=== PATIENT | female | born 1930 | race Caucasian/White ===

== ENCOUNTER 2017-02-20 17:12 | Inpatient (IN) | payer OTHER ==
[~2017-02-20] VITALS: Ht 162.6 cm; Wt 60.9 kg
[~2017-02-20 17:12] MED LIST: ASPI325T4 PO; CELE100C PO; CITA10TA8 PO; COEN75CA PO; CRS/10 PO; CYAN10004 PO; FURO20TA PO; LEVO75TA36 PO; LOSA1TAB PO; MCLIN; MECL25TA2 PO; METO1TAB66 PO; NTRGSL/4 SL; POTA-335 PO; vitamin c PO
[2017-02-20] MEDS ORDERED: METHYLPREDNISOLONE 125 MG VIAL IV STA (17:43)
[2017-02-20] MEDS ORDERED: SODIUM CHLORIDE 0.9% 1000ML 1,000 ML IV STA (17:52)
[2017-02-20] MEDS ORDERED: DEXTROSE 50% 50 ML SYR IV PRN (18:00)
[2017-02-20] MEDS ORDERED: GLUCAGON FOR INJ 1 MG VIAL SQ PRN (18:00)
[2017-02-20] MEDS ORDERED: GLUCOSE 40% GEL 15 GM TUBE PO PRN (18:00)
[2017-02-20] MEDS ORDERED: GLUCOSE 10 TABS/TUBE PO PRN (18:00)
[2017-02-20] MEDS ORDERED: ONDANSETRON INJ 2 MG/ML 2 ML VIAL IV PRN (18:00)
[2017-02-20] MEDS ORDERED: GABA-112 PO (18:02)
[2017-02-20] MEDS ORDERED: INSDGIPEN SC (18:02)
[2017-02-20] MEDS ORDERED: ISOS60TA25 PO (18:02)
[2017-02-20] MEDS ORDERED: GLC/500 PO (18:02)
--- NOTE | 2017-02-20 18:06 | DIAGNOSTIC IMAGING REPORT ---
HEAD WITHOUT CONTRAST (CT) CLINICAL HISTORY: 86 years-old Female presenting with EVALUATE ALTERED MENTAL STATUS/WEAKNESS. TECHNIQUE: Multidetector CT imaging of the head was performed without the use of intravenous contrast. IV contrast: None. A dose lowering technique was used consistent with the principles of ALARA (as low as reasonably achievable). COMPARISON: 08/18/2012. CT DOSE (mGy.cm): The estimated cumulative dose is 537.48 mGy.cm. 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 Ventricular size proportional to sulci and mild diffuse parenchymal volume loss, likely age-related. Periventricular white matter hypoattenuation as on prior exam, likely chronic small vessel ischemic change. Round hypodensities in the bilateral basal ganglia, most likely old lacunar infarcts or less likely dilated perivascular spaces. No mass effect or midline shift. No hemorrhage or acute territorial infarct. No extra-axial fluid collection. Paranasal sinuses and mastoid air cells clear. Calvarium intact. IMPRESSION: 1. No acute intracranial pathology. 2. Bilateral basal ganglia lacunar infarcts. 3. Chronic small vessel ischemic change stable from prior. Electronically signed by: Blake Burciaga M.D. 02/20/2017 6:05 PM Dictated Date/Time: 02/20/2017 6:01 PM
[2017-02-20 18:11] LABS: BASO % 0.5 %; BASO ABS # 0.03 K/uL (0-0.2); COMPLETE YES; EOS % 1.5 %; HEMATOCRIT 39.4 % (37-47); IG% 0.2 %; LYMPH % 17.3 %; LYMPH ABS # 1.01 K/uL (1.2-3.4); MEAN CELL VOLUME 90.2 fL (80-100); MEAN CORPUSCULAR HEMOGLOBIN 30.7 pg (25-34); MEAN PLATELET VOLUME 10.4 fL (7.4-10.4); MONO % 7.7 %; NEUT % 72.8 %; PLATELET COUNT 178 K/uL (130-400); RED BLOOD COUNT 4.37 M/uL (4.2-5.4); WHITE BLOOD COUNT 5.84 K/uL (4.8-10.8)
[2017-02-20] MEDS ORDERED: CHOL1000 PO (18:15)
[2017-02-20] MEDS ORDERED: MULT-190 PO (18:15)
[2017-02-20 18:16] LABS: ALT/SGPT 95 U/L (12-78); AST/SGOT 65 U/L (15-37); BLOOD UREA NITROGEN 14 mg/dl (7-18); BUN/CREATININE RATIO 16.3 (10-20); C-REACTIVE PROTEIN 5.43 mg/dl (0-0.29); CALCIUM 9.4 mg/dl (8.5-10.1); CARBON DIOXIDE 27 mmol/L (21-32); CHLORIDE 104 mmol/L (98-107); CREATININE 0.84 mg/dl (0.60-1.20); GLUCOSE 155 mg/dl (70-99); MAGNESIUM 1.9 mg/dl (1.8-2.4); PARTIAL THROMBOPLASTIN RATIO 1.2; POTASSIUM 3.6 mmol/L (3.5-5.1); SODIUM 138 mmol/L (136-145)
[2017-02-20 18:24] LABS: ALKALINE PHOSPHATASE 303 U/L (45-117)
[2017-02-20] MEDS ORDERED: CRS5 PO (18:55)
[2017-02-20] MEDS ORDERED: METO1TAB66 PO (18:55)
--- NOTE | 2017-02-20 18:57 | DIAGNOSTIC IMAGING REPORT ---
SINGLE VIEW CHEST CLINICAL HISTORY: Generalized weakness. Change in mental status. FINDINGS: An AP, portable, upright chest radiograph is compared to study dated 08/19/2012. The examination is degraded by portable technique, apical lordotic positioning, and patient rotation. The heart is mildly enlarged and there is atherosclerotic calcification of the thoracic aorta. The pulmonary vasculature is noncongested. There is chronic elevation of the right hemidiaphragm. The lungs and pleural spaces are otherwise clear. No pneumothorax is seen. The skeletal structures are osteopenic. The bony thorax is grossly intact. IMPRESSION: Cardiomegaly with no acute cardiopulmonary abnormality. Electronically signed by: Akshat Aj M.D. 02/20/2017 6:55 PM Dictated Date/Time: 02/20/2017 6:54 PM
[2017-02-20] MEDS ORDERED: NITROGLYCERIN 0.4 MG SL PER TAB CHARGE SL PRN (19:00)
--- NOTE | 2017-02-20 19:01 | EMERGENCY ROOM VISIT NOTE ---
History Report prepared by Trisha: Rod Duncan Under the Supervision of: Dr. Gregorio Clarke D.O. First contact with patient: 17:18 Chief Complaint: ABNORMAL LABS Stated Complaint: JAW PAIN, ABNORMAL LABS, PHYSICIAN REFERRED History of Present Illness The patient is a 86 year old female who presents to the Emergency Room with complaints of intermittent left sided jaw pain beginning 3 weeks ago. The patient states that her pain began in her left forehead before moving to her jaw. She describes her pain as "shooting". She was referred to the ED with concerns of temporal arteritis after being seen by her mechanical expert. The patient states that her left eye looks "foggy". She has a recent diagnosis of diabetes and a history of cardiac problems. She denies any rashes. The patient is on aspirin, but denies taking any other blood thinning medication. Source of History: patient Onset: Three weeks ago Position: jaw (left) Quality: other ("shooting") Timing: intermittent Associated Symptoms: No rash Note: The patient also complains of her left eye appearing "foggy". Review of Systems See HPI for pertinent positives & negatives. A total of 10 systems reviewed and were otherwise negative. 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 Social History Smoking Status: Never Smoker Alcohol Use: none Marital Status: Occupation Status: retired Current/Historical Medications Scheduled Aspirin (Aspirin), 325 MG PO QPM Gabapentin (Neurontin), 100 MG PO HS Insulin Glargine (Lantus Solostar), 6 UNITS SC HS Isosorbide Mononitrate Ext Rel (Imdur Ext Rel), 120 MG PO QPM Metformin Hcl (Glucophage), 1,000 MG PO BIDM Metoprolol Succinate (Toprol Xl), 50 MG PO QPM Ocuvite Preservision (Ocuvite Preservision), 2 TAB PO QPM Rosuvastatin Calcium (Crestor), 5 MG PO QPM Scheduled PRN Nitroglycerin (Nitrostat), 0.4 MG SL UD PRN Allergies Coded Allergies: Latex (Verified Allergy, rash/breakdown, 08/18/12) pt Niacin (Verified Allergy, rash, 08/18/12) pt Physical Exam Vital Signs Date Time Temp Pulse Resp B/P (MAP) Pulse Ox O2 Delivery O2 Flow Rate FiO2 02/20/17 17:40 75 131/60 99 Room Air 86 99/59 93 97/65 02/20/17 17:34 99 Room Air 02/20/17 17:15 36.8 88 16 133/76 97 Room Air Physical Exam GENERAL: Patient is awake, alert, and in no acute distress. Patient is resting comfortably and showing no signs of anxiety EYES: The conjunctivae are clear. The pupils are round and reactive. EARS, NOSE, MOUTH AND THROAT: The nose is without any evidence of any deformity. Mucous membranes are moist tongue is midline. Tenderness to palpation of the left temporal artery and left TMJ. NECK: The neck is nontender and supple. RESPIRATORY: Normal respiratory effort is noted there is no evidence of wheezing rhonchi or rales CARDIOVASCULAR: Regular rate and rhythm noted there no murmurs rubs or gallops normal S1 normal S2 GASTROINTESTINAL: The abdomen is soft. Bowel sounds are present in all quadrants. Abdomen is nontender MUSCULOSKELETAL/EXTREMITIES: There is no evidence of gross deformity full range of motion is noted in the hips and shoulders SKIN: There is no obvious evidence of any rash. There are no petechiae, pallor or cyanosis noted. NEUROLOGIC: Patient is awake alert and oriented x3, gait steady, patellar tendon reflexes 2+ bilaterally. 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 Ventricular size proportional to sulci and mild diffuse parenchymal volume loss, likely age-related. Periventricular white matter hypoattenuation as on prior exam, likely chronic small vessel ischemic change. Round hypodensities in the bilateral basal ganglia, most likely old lacunar infarcts or less likely dilated perivascular spaces. No mass effect or midline shift. No hemorrhage or acute territorial infarct. No extra-axial fluid collection. Paranasal sinuses and mastoid air cells clear. Calvarium intact. IMPRESSION: 1. No acute intracranial pathology. 2. Bilateral basal ganglia lacunar infarcts. 3. Chronic small vessel ischemic change stable from prior. Electronically signed by: Blake Burciaga M.D. SINGLE VIEW CHEST FINDINGS: An AP, portable, upright chest radiograph is compared to study dated 08/19/2012. The examination is degraded by portable technique, apical lordotic positioning, and patient rotation. The heart is mildly enlarged and there is atherosclerotic calcification of the thoracic aorta. The pulmonary vasculature is noncongested. There is chronic elevation of the right hemidiaphragm. The lungs and pleural spaces are otherwise clear. No pneumothorax is seen. The skeletal structures are osteopenic. The bony thorax is grossly intact. IMPRESSION: Cardiomegaly with no acute cardiopulmonary abnormality. Electronically signed by: Akshat Aj M.D. Laboratory Results 02/20/17 17:49 Red Blood Count 4.37, Mean Corpuscular Volume 90.2, Mean Corpuscular Hemoglobin 30.7, Mean Corpuscular Hemoglobin Concent 34.0, Mean Platelet Volume 10.4, Neutrophils (%) (Auto) 72.8, Lymphocytes (%) (Auto) 17.3, Monocytes (%) (Auto) 7.7, Eosinophils (%) (Auto) 1.5, Basophils (%) (Auto) 0.5, Neutrophils # (Auto) 4.25, Lymphocytes # (Auto) 1.01, Monocytes # (Auto) 0.45, Eosinophils # (Auto) 0.09, Basophils # (Auto) 0.03 02/20/17 17:49 Test 02/20/17 17:49 White Blood Count 5.84 K/uL (4.8-10.8) Red Blood Count 4.37 M/uL (4.2-5.4) Hemoglobin 13.4 g/dL (12.0-16.0) Hematocrit 39.4 % (37-47) Mean Corpuscular Volume 90.2 fL (80-100) Mean Corpuscular Hemoglobin 30.7 pg (25-34) Mean Corpuscular Hemoglobin Concent 34.0 g/dl (32-36) Platelet Count 178 K/uL (130-400) Mean Platelet Volume 10.4 fL (7.4-10.4) Neutrophils (%) (Auto) 72.8 % Lymphocytes (%) (Auto) 17.3 % Monocytes (%) (Auto) 7.7 % Eosinophils (%) (Auto) 1.5 % Basophils (%) (Auto) 0.5 % Neutrophils # (Auto) 4.25 K/uL (1.4-6.5) Lymphocytes # (Auto) 1.01 K/uL (1.2-3.4) Monocytes # (Auto) 0.45 K/uL (0.11-0.59) Eosinophils # (Auto) 0.09 K/uL (0-0.5) Basophils # (Auto) 0.03 K/uL (0-0.2) RDW Standard Deviation 41.2 fL (36.4-46.3) RDW Coefficient of Variation 12.5 % (11.5-14.5) Immature Granulocyte % (Auto) 0.2 % Immature Granulocyte # (Auto) 0.01 K/uL (0.00-0.02) Erythrocyte Sedimentation Rate 65 mm/hr (0-21) Prothrombin Time 11.0 SECONDS (9.0-12.0) Prothromb Time International Ratio 1.0 (0.9-1.1) Activated Partial Thromboplast Time 31.0 SECONDS (21.0-31.0) Partial Thromboplastin Ratio 1.2 Anion Gap 7.0 mmol/L (3-11) Est Creatinine Clear Calc Drug Dose 43.1 ml/min Estimated GFR () 74.0 Estimated GFR (Non- 63.8 BUN/Creatinine Ratio 16.3 (10-20) Calcium Level 9.4 mg/dl (8.5-10.1) Magnesium Level 1.9 mg/dl (1.8-2.4) Total Bilirubin 0.9 mg/dl (0.2-1) Direct Bilirubin 0.4 mg/dl (0-0.2) Aspartate Amino Transf (AST/SGOT) 65 U/L (15-37) Alanine Aminotransferase (ALT/SGPT) 95 U/L (12-78) Alkaline Phosphatase 303 U/L (45-117) Total Creatine Kinase 40 U/L (26-192) Creatine Kinase MB 1.2 ng/ml (0.5-3.6) Creatine Kinase MB Ratio 3.0 (0-3.0) Troponin I < 0.015 ng/ml (0-0.045) C-Reactive Protein 5.43 mg/dl (0-0.29) Pro-B-Type Natriuretic Peptide 898 pg/ml (0-1800) Total Protein 7.9 gm/dl (6.4-8.2) Albumin 3.1 gm/dl (3.4-5.0) Thyroid Stimulating Hormone (TSH) 1.850 uIu/ml (0.300-4.500) Laboratory results per my review. Medications Administered Medications (Trade) Dose Ordered Sig/Duncan Route Start Time Stop Time Status Last Admin Dose Admin Methylprednisolone Sodium Succinate (Solu-Medrol IV) 60 mg NOW STAT IV 02/20/17 17:43 02/20/17 17:44 DC 02/20/17 18:05 60 MG ECG Indication: other (headache) Rate (beats per minute): 77 Rhythm: normal sinus Findings: no acute ischemic change, no ectopy Comparison ECG Date: Aug 20, 2012 Change: no significant change ED Course 1721: The patient was evaluated in room C6. A complete history and physical examination were performed. 1743: Ordered Solu-Medrol 60 mg IV, NSS 1000 mL @ 999 mL/hr IV. 1745: Upon reevaluation, the patient is resting comfortably. I discussed results and treatment plan with her. She verbalizes agreement and understanding. I spoke with Dr. Ryan of the [facility]. The patient will be evaluated for further management and care. Medical Decision Differential diagnosis: Etiologies such as migraine headache, meningitis, sinusitis, CO exposure, ICH, SAH, infection, tumor, headache, sinus thrombosis, arterial dissection, as well as others were entertained. Nursing notes reviewed. Patient's previous electronic medical records reviewed. The patient is an 86-year-old female who is been experiencing left temporal pain and left jaw pain. The last few weeks. The patient appears to have had a workup previously and was sent to the emergency department for the possibility of temporal arteritis. She has been complaining of some left eye complaints like blurry vision. She had no other focal neurologic deficit. I discussed the patient's laboratory and radiographic studies with her. She was treated with steroids in the emergency department. I also discussed his case with the on- call [facility] hospitalist. They've agreed to evaluate the patient in the emergency department for further management and disposition. Medication Reconcilliation Current Medication List: was personally reviewed by me Blood Pressure Screening Patient's blood pressure: Elevated blood pressure Blood pressure disposition: Elevated BP felt to be situational Consults Time Called: 1739 Consulting Physician: Dr. Connor Wilson Returned Call: [phone] I discussed the patient's case with Dr. Ryan. The patient will be evaluated for further management. Impression Primary Impression: Left-sided headache Additional Impression: Temporal arteritis Scribe Attestation The scribe's documentation has been prepared under my direction and personally reviewed by me in its entirety. I confirm that the note above accurately reflects all work, treatment, procedures, and medical decision making performed by me. Departure Information Dispostion Being Evaluated By Hospitalist Prescriptions Metoprolol Succinate (TOPROL XL) 50 Mg Tab 50 MG PO QPM for 30 Days, 3 Refills Prov: Francheska Moura PA-C 02/20/17 Referrals Epifanio Mendoza D.O. (PCP) Patient Instructions My [facility] Problem Qualifiers
[2017-02-20] MEDS ORDERED: IV FLUIDS COMPLETED PRN (19:30)
[2017-02-20 19:45] VITALS: BP 147/83; PULSE 80; TEMP 36.9; O2SAT 99
[2017-02-20] MEDS: SODIUM CHLORIDE 0.9% 1000ML 1,000 ML IV SCH (20:00)
[2017-02-20] MEDS: ACETAMINOPHEN 325 MG TAB PO PRN (20:17)
--- NOTE | 2017-02-20 20:23 | History and Physical ---
History & Physical Date & Time of Service: Feb 20, 2017 at 18:04 Chief Complaint: Jaw Pain, Abnormal Labs, Physician Referred Primary Care Physician: Epifanio Mendoza D.O. History of Present Illness Source: patient, clinic records This is an 86 y/o female with PMH of CAD, HTN, seizure disorder, and other problems listed below who was sent to the ED by Dr. Mendoza for possible temporal arteritis. Patient was seen in clinic by Dr. Mendoza for routine follow up and reported jaw pain, fatigue, decreased appetite, weight loss. ESR done as outpatient was elevated to 79 and therefore patient was sent to ED for evaluation for temporal arteritis. Pt reports left jaw pain intermittently over past 1-2 weeks which became more constant for past 3 days. She describes pain as jabbing or shooting radiation to her left yarsani. She does not recall any provoking factor. Took ibuprofen at home without relief. She denies any vision change from baseline. She reports several months of low appetite with poor PO intake. Reports weight loss of 30 lb in past 2 years. Has felt fatigued for months. Denies issues ambulating. States she has not voided all day. Denies fever, chills, URI symptoms, cough, SOB, N/V, diarrhea, dysuria. No seizures for several years. No longer on antiepileptic medication. She does not follow with neurology. Past Medical/Surgical History Medical Problems: (1) Allergic rhinitis Status: Chronic (2) Alzheimer disease Status: Chronic (3) Breast cancer Permanent Comment: Right breast cancer, s/p surgical resection 1956, no adjuvant therapy Status: Chronic (4) CEREBRAL ATHEROSCLEROSIS Status: Chronic (5) Chronic kidney disease stage 3 Status: Chronic (6) Coronary artery disease Status: Chronic (7) Cortical senile cataract Status: Resolved (8) Cough variant asthma Status: Chronic (9) Diastolic dysfunction Status: Chronic EF 65% on 01/2016 echo (10) DM type 2 (diabetes mellitus, type 2) Status: Chronic (11) Essential hypertension Status: Chronic (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 Status: Chronic (13) GENERAL OSTEOARTHROSIS Status: Chronic (14) Generalized anxiety disorder Status: Chronic (15) Hypercholesterolemia Status: Chronic (16) Hypothyroidism Status: Chronic (17) Irritable colon Status: Chronic (18) Polyneuropathy Status: Chronic (19) Venous insufficiency Status: Chronic Surgical Problems: (1) H/O cardiac catheterization Permanent Comment: September, at [facility] with 100% distal right coronary artery occlusion and right to right and her left to right collaterals filling distal RCA territory for which medical management was recommended, elevated LVEDP noted at that time Status: Resolved (2) History of hysterectomy Status: Resolved (3) Hx of appendectomy Status: Resolved Family History Noncontributory due to age. Social History Smoking Status: Never Smoker Smokeless Tobacco Use: No Alcohol Use: none Marital Status: Housing status: lives alone Occupational Status: retired Immunizations History of Influenza Vaccine: No History of Tetanus Vaccine?: No History of Pneumococcal: Yes Pneumococcal Date: Aug 21, 2012 History of Hepatitis B Vaccine: No Allergies Coded Allergies: Latex (Verified Allergy, rash/breakdown, 08/18/12) pt Niacin (Verified Allergy, rash, 08/18/12) pt Home Medications Scheduled Aspirin (Aspirin), 325 MG PO QPM Gabapentin (Neurontin), 100 MG PO HS Insulin Glargine (Lantus Solostar), 6 UNITS SC HS Isosorbide Mononitrate Ext Rel (Imdur Ext Rel), 120 MG PO QPM Metformin Hcl (Glucophage), 1,000 MG PO BIDM Metoprolol Succinate (Toprol Xl), 50 MG PO QPM Ocuvite Preservision (Ocuvite Preservision), 2 TAB PO QPM Rosuvastatin Calcium (Crestor), 5 MG PO QPM Scheduled PRN Nitroglycerin (Nitrostat), 0.4 MG SL UD PRN Physical Exam Vital Signs Date Time Temp Pulse Resp B/P (MAP) Pulse Ox O2 Delivery O2 Flow Rate FiO2 02/20/17 17:40 75 131/60 99 Room Air 86 99/59 93 97/65 02/20/17 17:34 99 Room Air 02/20/17 17:15 36.8 88 16 133/76 97 Room Air General Appearance: WD/WN, no apparent distress, + pertinent finding (son at bedside) Head: normocephalic, atraumatic Eyes: normal inspection, PERRL, EOMI ENT: hearing grossly normal, pharynx normal (dry mucosa), + pertinent finding ( +left temporal tenderness. left TM normal. ) Neck: supple, trachea midline Respiratory/Chest: lungs clear, normal breath sounds, no respiratory distress Cardiovascular: regular rate, rhythm, no murmur Abdomen/GI: normal bowel sounds, non tender, soft Extremities/Musculoskelatal: no calf tenderness, + pertinent finding (chronic BLLE swelling due to venous insufficiency) Neurologic/Psych: no motor/sensory deficits, normal mood/affect, oriented x 3, + pertinent finding (no focal deficit on gross examination) Skin: normal color, warm/dry Diagnostics Laboratory Results Results Past 24 Hours Test 02/20/17 17:28 02/20/17 17:45 02/20/17 17:49 Range/Units Creatine Kinase MB Ratio 0-3.0 Bedside Glucose 175 70-90 mg/dl Diagnostic Radiology HEAD WITHOUT CONTRAST (CT) IMPRESSION: 1. No acute intracranial pathology. 2. Bilateral basal ganglia lacunar infarcts. 3. Chronic small vessel ischemic change stable from prior. SINGLE VIEW CHEST IMPRESSION: Cardiomegaly with no acute cardiopulmonary abnormality. EKG NSR, 77 bpm, nonspecific T wave flattening in III, no ST changes Impression Assessment and Plan TEMPORAL ARTERITIS Sent from cardiology clinic for jaw pain, ESR elevated to 79 as outpatient (65 in ER) CT head- no acute findings, old lacunar infarcts, chronic small vessel disease Received IV Solu-Medrol in ER Continue steroids- PO prednisone 60 mg daily Consult neurology Consult general surgery for temporal artery biopsy NPO after midnight in case of biopsy ORTHOSTATIC HYPOTENSION Due to dehydration from poor PO intake 1 liter NSS given in ER; continue IVF's at 80 cc/ hour x 2 liters DM TYPE 2 Hold metformin Continue Lantus Novolog sliding scale coverage Monitor BSG AC HS- anticipate rising BSG while on steroids CAD Stable; no chest pain Continue aspirin, Imdur, beta zaria, statin DVT PROPHYLAXIS Heparin SQ- hold am dose in case of biopsy in am CODE STATUS FULL CODE per my discussion with the patient DISPOSITION Follows with Dr. Mariscal for primary care Patient seen in collaboration with Dr. Ryan. Please see her addendum. Attending addendum: Agree with the above H&P; please refer to above for greater detail. Patient was sent in from her Civil Cadd Technician's office for patient reporting malaise , weight loss, fatigue, left jaw and yarsani pain and decreased appetite. Per Cardio the patient has changed significantly from previous visits and there was a concern for temporal arteritis. No visual symptoms of the left eye, but patient reports some visual difficulties on the right. Outpatient cardiac evaluation was negative. Cardiac: RR, S1 and S2 auscultated, no JVD, no carotid bruits Resp: CTA B/L, no wheezes, rales or rhonchi GI: soft, NT, ND, +BS Neuro: A&Ox3, no focal motor or sensory deficits noted, left temporal tenderness to palpation and side of face noted JAW PAIN/SUSPICION FOR TEMPORAL ARTERITIS: -elevated ESR: 79 as outpatient with previously normal sed rates -started on prednisone 60mg daily -Surgery consulted for temporal artery biopsy -CT head negative -Neuro consulted VTE Prophylaxis VTE Risk Assessment Done? Y/N: Yes Risk Level: Moderate
[2017-02-20] MEDS ORDERED: INSULIN GLARGINE SOLOSTAR 100 UNITS/ML 3 ML PEN SC SCH (21:00)
[2017-02-20] MEDS ORDERED: INSULIN ASPART 100 UNITS/ML 3 ML PEN SC SCH (21:00)
[2017-02-20] MEDS: ISOSORBIDE MONONITRATE 60 MG TABCR PO SCH (21:32)
[2017-02-20] MEDS: ROSUVASTATIN CALCIUM 5 MG TAB PO SCH (21:33)
[2017-02-20] MEDS: ASPIRIN 325 MG ECTAB PO SCH (21:33)
[2017-02-20] MEDS: METOPROLOL SUCC 50MG EXT REL TAB PO SCH (21:33)
[2017-02-20] MEDS: CEROVITE ADV FORMULA TAB PO SCH (21:33)
[2017-02-20] MEDS: GABAPENTIN 100 MG CAP PO SCH (21:33)
[2017-02-20] MEDS: HEPARIN SOD 5000 UNIT/0.5 ML CARP SQ SCH (21:36)
[2017-02-20 21:38] VITALS: BP 142/71; PULSE 81
[2017-02-20 22:46] VITALS: BP 142/71; PULSE 81; TEMP 36.8; O2SAT 97; BMI 22.6
[2017-02-20 23:04] VITALS: BP 130/71; PULSE 77; TEMP 36.7; O2SAT 97
[2017-02-21] MEDS ORDERED: NURSING VERBAL MED ORDER ONE ×4 (00:45→11:45)
[2017-02-21 05:35] VITALS: BP_SYST 135; BP_SYST 142; BP_SYST 153; BP_DIAS 71; PULSE 65; PULSE 71; PULSE 77
[2017-02-21] MEDS: SODIUM CHLORIDE 0.9% 1000ML 1,000 ML IV SCH ×2 (05:44→17:16)
[2017-02-21] MEDS ORDERED: INSULIN ASPART 100 UNITS/ML 3 ML PEN SC SCH ×3 (06:00→12:00)
[2017-02-21 06:19] LABS: URINE APPEARANCE CLEAR (CLEAR); URINE BILIRUBIN NEG (NEG); URINE COLOR DK YELLOW; URINE NITRITE POS (NEG); URINE SPECIFIC GRAVITY 1.023 (1.000-1.030); UROBILINOGEN NEG (NEG)
[2017-02-21 06:41] LABS: MANUAL MICROSCOPIC REQUIRED? NO; REVIEW REQ? NO
[2017-02-21 07:45] VITALS: BP_SYST 110; BP_SYST 120; BP_DIAS 54; BP_DIAS 58; BP_DIAS 60; PULSE 63; PULSE 66; PULSE 68; TEMP 36.5; O2SAT 97
--- NOTE | 2017-02-21 10:24 | DIAGNOSTIC IMAGING REPORT ---
ULTRASOUND LEFT LOWER EXTREMITY VENOUS CLINICAL HISTORY: Left leg swelling. COMPARISON STUDY: Bilateral lower extremity venous ultrasound dated 08/18/2012. TECHNIQUE: Real-time, grayscale, and color Doppler sonography of the deep veins of the left lower extremity was performed from the inguinal crease to the calf. Compression and augmentation were utilized. FINDINGS: There is no sonographic evidence of deep venous thrombosis identified in the left lower extremity. The common femoral, superficial femoral, and popliteal veins are patent and normally compressible. The greater saphenous vein and the profunda femoris vein at the junction with the common femoral vein are clear. The visualized calf veins are patent. IMPRESSION: There is no sonographic evidence of deep venous thrombosis identified in the left lower extremity. Electronically signed by: Akshat Aj M.D. 02/21/2017 10:23 AM Dictated Date/Time: 02/21/2017 10:22 AM
[2017-02-21] MEDS: INSULIN ASPART 100 UNITS/ML 3 ML PEN SC SCH ×3 (13:11→20:32)
--- NOTE | 2017-02-21 13:26 | Surgery Consultation ---
Consultation Date of Service Feb 21, 2017. Chief Complaint possible temporal arteritis History of Present Illness The patient is a 86 year old female with multiple medical problems, including mild dementia, admitted with waxing and waning, sharp, L sided jaw pain radiating to cheek, temporal area, forehead, and mastoid area for past few weeks. Pt states her pain increased about 1 week ago, so discussed it with her clinical athletic instructor since she already had an appt with him. States Dr Mendoza ordered bloodwork and she was then called at home and advised to go to ED for evaluation. States she chronically has poor vision and BLE edema, but no new changes. Admits discomfort and "swollen lymph nodes" in neck about 2 weeks ago. Denies MCDANIELS, dizziness, difficulty speaking, unilateral extremity weakness numbness or tingling, facial droop, chest pain, SOB, abd pain, N/V, rest pain, claudication, other complaints. Pt is poor historian. Labwork demonstrates ESR of 79. Vitals Vital Signs Past 12 Hours Date Time Temp Pulse Resp B/P (MAP) Pulse Ox O2 Delivery O2 Flow Rate FiO2 02/21/17 08:00 Room Air 02/21/17 07:45 97 Room Air 02/21/17 07:45 36.5 63 16 120/58 (78) 97 Room Air 66 110/60 (77) 68 110/54 (72) 02/21/17 05:35 77 135/71 (92) 65 142/71 (94) 71 153/71 (98) Allergies Coded Allergies: Latex (Verified Allergy, rash/breakdown, 08/18/12) pt Niacin (Verified Allergy, rash, 08/18/12) pt Home Medications Scheduled Aspirin (Aspirin), 325 MG PO QPM Gabapentin (Neurontin), 100 MG PO HS Insulin Glargine (Lantus Solostar), 6 UNITS SC HS Isosorbide Mononitrate Ext Rel (Imdur Ext Rel), 120 MG PO QPM Metformin Hcl (Glucophage), 1,000 MG PO BIDM Metoprolol Succinate (Toprol Xl), 50 MG PO QPM Ocuvite Preservision (Ocuvite Preservision), 2 TAB PO QPM Rosuvastatin Calcium (Crestor), 5 MG PO QPM Scheduled PRN Nitroglycerin (Nitrostat), 0.4 MG SL UD PRN Problem List Medical Problems: (1) Allergic rhinitis (2) Alzheimer disease (3) Breast cancer (4) CEREBRAL ATHEROSCLEROSIS (5) Chronic kidney disease stage 3 (6) Coronary artery disease (7) Cortical senile cataract (8) Cough variant asthma (9) Diastolic dysfunction (10) DM type 2 (diabetes mellitus, type 2) (11) Essential hypertension (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 (13) GENERAL OSTEOARTHROSIS (14) Generalized anxiety disorder (15) Hypercholesterolemia (16) Hypothyroidism (17) Irritable colon (18) Polyneuropathy (19) Temporal arteritis (20) Venous insufficiency Surgical Problems: (1) H/O cardiac catheterization (2) History of hysterectomy (3) Hx of appendectomy Surgical / Medical History Hx Cardiac Surgery: No Hx Abdominal Surgery: Yes Hx Cancer Surgery: Yes Hx Thoracic Surgery: No Hx Orthopedic: No Hx Urinary Tract Surgery: No HX Other Surgery: No Past Medical/Surgical History: CVA/TIA, Diabetes, Hypertension Family History + HTN, DMII Social History Smoking Status: Never Smoker Hx Tobacco Use In Past Year?: No Hx Alcohol Use - Type & Amnt: No Hx Substance Use -Type & Amnt: No Review of Systems Constitutional: + malaise, No chills, No fever Skin: No change in color Eyes: No visual changes ENMT: + problem reported (had a tooth pulled from right side of mouth about 1 month ago), No tinnitus, No sore throat, No throat swelling Respiratory: No cough, No GOODMAN, No hemoptysis, No short of breath Cardiovascular: + edema, No chest pain, No palpitations, No syncope, No intermittent claudication Gastrointestinal: No abdominal pain, No nausea, No vomiting Genitourinary - Female: No dysuria Neurologic: No dizziness, No weakness, No headache, No numbness, No tingling Physical Exam Constitutional: General Apperance: well-nourished, well-developed, too thin Level of Distress: NAD, chronically ill (mildly) Ambulation: ambulating normally Psychiatric: Mental Status: active & alert, normal mood, normal affect Orientation: oriented except where noted, to time, to place, to person Memory: recent memory normal (vague), remote memory normal Head: normocephalic, atraumatic Eyes: EOM: EOMI ENMT: hearing grossly normal, + pertinent finding (mild tenderness over LEFT jaw to TMJ and temporal area, forehead and mastoid also tender ) Neck: supple, trachea midline Lungs: Respiratory effort: no dyspnea Auscultation: no rales/crackles, no rhonchi, decreased breath sounds Cardiovascular: Apical Impulse: not displaced Heart Auscultation: RRR, no rubs, no gallops Peripheral Pulses: Pulses: full and equal, in all extremities except if noted Bruits: none appreciated Superficial Temporal Artery: normal on the left, normal on the right Brachial Pulses: normal on the left, normal on the right Radial Pulse: normal on the left, normal on the right Femoral Pulse: normal on the left, normal on the right Posterior Tibialis Pulse: decreased on the left, decreased on the right Dorsalis Pedis Pulse: decreased on the left, decreased on the right Abdomen: Bowel Sounds: normal Inspection & Palpation: soft, non-distended, no tenderness, guarding & rebound Musculoskeletal: normal strength (5/5 throughout), normal tone Extremities: Upper Right: no cyanosis, no edema, no varicosities Upper Left: no cyanosis, no edema, no varicosities Lower Right: no cyanosis, no varicosities, no palpable cord, edema Lower Left: no cyanosis, no varicosities, no palpable cord, edema Neurologic: Cranial Nerves: grossly intact Sensation: grossly intact Assessment and Plan ASSESSMENT and PLAN: L jaw and TMJ pain/tenderness Pt with left sided jaw/TMJ/temporal/and mastoid tenderness. Pt denies MCDANIELS. Pt also seen by Dr Magallanes. Based on HPI, labs, and exam, would not recommend temporal artery bx at this time. Pt states discomfort is improving. Further recs per primary team. Please call if needed.
--- NOTE | 2017-02-21 14:33 | Neurology Consultation ---
Neurology Consultation Date of Consultation: Feb 21, 2017. Attending Physician: Lida Paul DO Primary Care Physician: Epifanio Mendoza D.O. Reason for Consultation: temporal arteritis History of Present Illness Source: patient More is a 86 year old female PMH of CAD, HTN, seizure disorder. Who was sent to the ED by Dr. Mendoza for possible temporal arteritis. She was seeing Dr. Mendoza for routine follow up and reported jaw pain, fatigue, decreased appetite, weight loss. ESR done as outpatient was elevated to 79 and therefore patient was sent to ED for evaluation for temporal arteritis. She also complains of left jaw pain intermittently over past 1-2 weeks which became more constant for past 3 days. She describes pain as jabbing or shooting radiation to her left baptism. She took ibuprofen at home without relief. She states she has macular degeneration but the vision in her left eye is now blurred. She reports several months of low appetite with poor PO intake and fatigue. Denies issues ambulating or falls. Denies fever, chills, URI symptoms, cough, SOB, N/V , diarrhea, dysuria. No seizures for several years. No longer on antiepileptic medication and does not follow with neurology Past Medical/Surgical History Medical Problems: (1) Left-sided headache Status: Acute Family History Father: heart disease Mother: HTN, heart disease Social History Smoking Status: Never smoker Smokeless Tobacco Use: No Alcohol Use: none Marital Status: Occupation Status: retired Allergies Coded Allergies: Latex (Verified Allergy, rash/breakdown, 08/18/12) pt Niacin (Verified Allergy, rash, 08/18/12) pt Current Inpatient Medications Current Inpatient Medications Medications (Trade) Dose Ordered Sig/Duncan Route Start Time Stop Time Status Last Admin Dose Admin Acetaminophen (Tylenol Tab) 650 mg Q4H PRN PO 02/20/17 18:00 03/22/17 17:59 02/20/17 20:17 650 MG Ondansetron HCl (Zofran Inj) 4 mg Q6H PRN IV 02/20/17 18:00 03/22/17 17:59 Prednisone (PredniSONE TAB) 60 mg DAILY PO 02/21/17 09:00 03/23/17 08:59 02/21/17 09:43 60 MG Glucose (Glucose 40% Gel) 15-30 GRAMS 15 GRAMS... UD PRN PO 02/20/17 18:00 03/22/17 17:59 Glucose (Glucose Chew Tab) 4-8 Tablets 4 Tabl... UD PRN PO 02/20/17 18:00 03/22/17 17:59 Dextrose (Dextrose 50% 50ML Syringe) 25-50ML OF 50% DW IV FOR... UD PRN IV 02/20/17 18:00 03/22/17 17:59 Glucagon (Glucagon Inj) 1 mg UD PRN SQ 02/20/17 18:00 03/22/17 17:59 Aspirin (Ecotrin Tab) 325 mg QPM PO 02/20/17 21:00 03/22/17 20:59 02/20/17 21:33 325 MG Gabapentin (Neurontin Cap) 100 mg HS PO 02/20/17 21:00 03/22/17 20:59 02/20/17 21:33 100 MG Insulin Glargine (Lantus Solostar Pen) 6 units HS SC 02/20/17 21:00 03/22/17 20:59 02/20/17 21:36 6 UNITS Isosorbide Mononitrate (Imdur Ext Rel Tab) 120 mg QPM PO 02/20/17 21:00 03/22/17 20:59 02/20/17 21:32 120 MG Metoprolol Succinate (Toprol Xl Tab) 50 mg QPM PO 02/20/17 21:00 03/22/17 20:59 02/20/17 21:33 50 MG Nitroglycerin (Nitrostat Tab) 0.4 mg UD PRN SL 02/20/17 19:00 03/22/17 18:59 Multivitamins/ Minerals (Multivitamin W/ Minerals Tab) 2 tab QPM PO 02/20/17 21:00 03/22/17 20:59 02/20/17 21:33 2 TAB Rosuvastatin Calcium (Crestor Tab) 5 mg QPM PO 02/20/17 21:00 03/22/17 20:59 02/20/17 21:33 5 MG Heparin Sodium (Porcine) (Heparin Sq 5000 Unit/0.5ml) 5,000 unit Q12 SQ 02/20/17 21:00 03/22/17 20:59 Future hold 02/20/17 21:36 5,000 UNIT Sodium Chloride 1,000 ml @ 80 mls/hr [id number] IV 02/20/17 19:15 02/21/17 20:14 02/21/17 05:44 80 MLS/HR Miscellaneous (Iv Fluids Completed) 1 ea PRN PRN N/A 02/20/17 19:30 02/20/18 19:29 Insulin Aspart (novoLOG ASPART) SLIDING SCALE If C... ACHS SC 02/21/17 12:00 03/23/17 11:59 02/21/17 13:11 2 UNITS Physical Exam Vital Signs (Past 24 Hrs): Date Time Temp Pulse Resp B/P (MAP) Pulse Ox O2 Delivery O2 Flow Rate FiO2 02/21/17 08:00 Room Air 02/21/17 07:45 97 Room Air 02/21/17 07:45 36.5 63 16 120/58 (78) 97 Room Air 66 110/60 (77) 68 110/54 (72) 02/21/17 05:35 77 135/71 (92) 65 142/71 (94) 71 153/71 (98) 02/20/17 23:25 Room Air 02/20/17 23:04 36.7 77 16 130/71 (90) 97 Room Air 02/20/17 22:46 36.8 81 18 142/71 97 Room Air 02/20/17 21:38 81 142/71 (94) 02/20/17 19:45 36.9 80 16 147/83 (104) 99 Room Air 02/20/17 19:45 Room Air 02/20/17 19:34 77 18 136/63 97 02/20/17 18:09 76 02/20/17 17:40 75 131/60 99 Room Air 86 99/59 93 97/65 02/20/17 17:34 99 Room Air 02/20/17 17:15 36.8 88 16 133/76 97 Room Air Physical Exam: Constitutional: appearance nourished, healthy and normal Ears, Nose, Mouth and Throat: mucous membranes moist, no injection and skin normal, eyes normal Cardiovascular: normal S-1 and S-2 and regular rate and rhythm Respiratory: clear to auscultation (CTA) and no rales, rhonchi or wheeze Musculoskeletal: bilateral LE edema, decreased pulses Skin: no stigmata of neurocutaneous disease noted and normal and intact Eyes: extraocular muscles intact (EOMI) and pupils equal, round and reactive to light (PERRL), gloss peripheral vision intact NEUROLOGIC EXAMINATION: Mental status: Alert and interactive Oriented to full date and location Oriented to person Speech fluent with no evidence of aphasia Cranial Nerves smile eye brow raise symmetric Reflexes: Deep tendon reflexes were symmetrical decreased bilaterally. Plantar responses were flexor. Sensory: sensory intact to vibration, light touch tenderness with palpation of left temporal area and opening and closing jaw on left Gait/Stance: Posture normal. 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 5/5, hip flex 5/5, plantar flex 3/5 left LE Laboratory Results Past 24 Hours: 02/20/17 17:49 Red Blood Count 4.37, Mean Corpuscular Volume 90.2, Mean Corpuscular Hemoglobin 30.7, Mean Corpuscular Hemoglobin Concent 34.0, Mean Platelet Volume 10.4, Neutrophils (%) (Auto) 72.8, Lymphocytes (%) (Auto) 17.3, Monocytes (%) (Auto) 7.7, Eosinophils (%) (Auto) 1.5, Basophils (%) (Auto) 0.5, Neutrophils # (Auto) 4.25, Lymphocytes # (Auto) 1.01, Monocytes # (Auto) 0.45, Eosinophils # (Auto) 0.09, Basophils # (Auto) 0.03 02/20/17 17:49 Test 02/20/17 17:49 02/21/17 05:55 02/21/17 11:43 White Blood Count 5.84 K/uL (4.8-10.8) Red Blood Count 4.37 M/uL (4.2-5.4) Hemoglobin 13.4 g/dL (12.0-16.0) Hematocrit 39.4 % (37-47) Mean Corpuscular Volume 90.2 fL (80-100) Mean Corpuscular Hemoglobin 30.7 pg (25-34) Mean Corpuscular Hemoglobin Concent 34.0 g/dl (32-36) Platelet Count 178 K/uL (130-400) Mean Platelet Volume 10.4 fL (7.4-10.4) Neutrophils (%) (Auto) 72.8 % Lymphocytes (%) (Auto) 17.3 % Monocytes (%) (Auto) 7.7 % Eosinophils (%) (Auto) 1.5 % Basophils (%) (Auto) 0.5 % Neutrophils # (Auto) 4.25 K/uL (1.4-6.5) Lymphocytes # (Auto) 1.01 K/uL (1.2-3.4) Monocytes # (Auto) 0.45 K/uL (0.11-0.59) Eosinophils # (Auto) 0.09 K/uL (0-0.5) Basophils # (Auto) 0.03 K/uL (0-0.2) RDW Standard Deviation 41.2 fL (36.4-46.3) RDW Coefficient of Variation 12.5 % (11.5-14.5) Immature Granulocyte % (Auto) 0.2 % Immature Granulocyte # (Auto) 0.01 K/uL (0.00-0.02) Erythrocyte Sedimentation Rate 65 mm/hr (0-21) Prothrombin Time 11.0 SECONDS (9.0-12.0) Prothromb Time International Ratio 1.0 (0.9-1.1) Activated Partial Thromboplast Time 31.0 SECONDS (21.0-31.0) Partial Thromboplastin Ratio 1.2 Anion Gap 7.0 mmol/L (3-11) Est Creatinine Clear Calc Drug Dose 43.1 ml/min Estimated GFR () 74.0 Estimated GFR (Non- 63.8 BUN/Creatinine Ratio 16.3 (10-20) Calcium Level 9.4 mg/dl (8.5-10.1) Magnesium Level 1.9 mg/dl (1.8-2.4) Total Bilirubin 0.9 mg/dl (0.2-1) Direct Bilirubin 0.4 mg/dl (0-0.2) Aspartate Amino Transf (AST/SGOT) 65 U/L (15-37) Alanine Aminotransferase (ALT/SGPT) 95 U/L (12-78) Alkaline Phosphatase 303 U/L (45-117) Total Creatine Kinase 40 U/L (26-192) Creatine Kinase MB 1.2 ng/ml (0.5-3.6) Creatine Kinase MB Ratio 3.0 (0-3.0) Troponin I < 0.015 ng/ml (0-0.045) C-Reactive Protein 5.43 mg/dl (0-0.29) Pro-B-Type Natriuretic Peptide 898 pg/ml (0-1800) Total Protein 7.9 gm/dl (6.4-8.2) Albumin 3.1 gm/dl (3.4-5.0) Thyroid Stimulating Hormone (TSH) 1.850 uIu/ml (0.300-4.500) Urine Color DK YELLOW Urine Appearance CLEAR (CLEAR) Urine pH 5.0 (4.5-7.5) Urine Specific [place] 1.023 (1.000-1.030) Urine Protein NEG (NEG) Urine Glucose (UA) 3+ (NEG) Urine Ketones 2+ (NEG) Urine Occult Blood NEG (NEG) Urine Nitrite POS (NEG) Urine Bilirubin NEG (NEG) Urine Urobilinogen NEG (NEG) Urine Leukocyte Esterase TRACE (NEG) Urine WBC (Auto) 5-10 /hpf (0-5) Urine RBC (Auto) 0-4 /hpf (0-4) Urine Hyaline Casts (Auto) 1-5 /lpf (0-5) Urine Epithelial Cells (Auto) 10-20 /lpf (0-5) Urine Bacteria (Auto) 4+ (NEG) Bedside Glucose 166 mg/dl (70-90) Imaging CT head- No acute intracranial pathology. Bilateral basal ganglia lacunar infarcts. Chronic small vessel ischemic change stable from prior. lower extremities doppler- There is no sonographic evidence of deep venous thrombosis identified in the left lower extremity. Impression 86 year old female with several days of left temporal pain, increased sed rate, jaw pain Plan 1. prednisone 60 mg started yesterday - some relief 2. enlight of temporal tenderness and elevated SED rate to 79 as out patient would precede with biopsy 3. consult to rheumatology for management I have seen and discussed above patient with Dr Juanita Don, neurology Pt seen and examined. Hx suggestive of poss temp arteritis. Fortunately no signs of ischemia. Pt improved with steroids. Rec TA biopsy. If neg, consider ENT eval. Discussed with Dr Paul, pt and son. WALTER Don MD
--- NOTE | 2017-02-21 15:29 | Progress Note ---
Subjective Date of Service: Feb 21, 2017. Subjective Pt evaluation today including: conversation w/ patient, physical exam, lab review, review of studies, review of inpatient medication list Saw/examined the patient in room 388 improved headache and jaw pain today; no other neurological issues to note Intermittent confusion pt. lives alone Problem List Medical Problems: (1) Left-sided headache Status: Acute Review of Systems Constitutional: No fever, No chills Eyes: + worsening of vision (L blurry vision) ENT: + problem reported (L sided jaw pain, L temporal pain), No hearing loss Respiratory: No cough, No sputum, No shortness of breath Cardiac: No chest pain Abdomen: No pain, No nausea, No vomiting, No diarrhea Female : No dysuria, No urinary frequency Heme: No abnormal bleeding/bruising Medications Current Inpatient Medications Medications (Trade) Dose Ordered Sig/Duncan Route Start Time Stop Time Status Last Admin Dose Admin Acetaminophen (Tylenol Tab) 650 mg Q4H PRN PO 02/20/17 18:00 03/22/17 17:59 02/20/17 20:17 650 MG Ondansetron HCl (Zofran Inj) 4 mg Q6H PRN IV 02/20/17 18:00 03/22/17 17:59 Prednisone (PredniSONE TAB) 60 mg DAILY PO 02/21/17 09:00 03/23/17 08:59 02/21/17 09:43 60 MG Glucose (Glucose 40% Gel) 15-30 GRAMS 15 GRAMS... UD PRN PO 02/20/17 18:00 03/22/17 17:59 Glucose (Glucose Chew Tab) 4-8 Tablets 4 Tabl... UD PRN PO 02/20/17 18:00 03/22/17 17:59 Dextrose (Dextrose 50% 50ML Syringe) 25-50ML OF 50% DW IV FOR... UD PRN IV 02/20/17 18:00 03/22/17 17:59 Glucagon (Glucagon Inj) 1 mg UD PRN SQ 02/20/17 18:00 03/22/17 17:59 Aspirin (Ecotrin Tab) 325 mg QPM PO 02/20/17 21:00 03/22/17 20:59 02/20/17 21:33 325 MG Gabapentin (Neurontin Cap) 100 mg HS PO 02/20/17 21:00 03/22/17 20:59 02/20/17 21:33 100 MG Insulin Glargine (Lantus Solostar Pen) 6 units HS SC 02/20/17 21:00 03/22/17 20:59 02/20/17 21:36 6 UNITS Isosorbide Mononitrate (Imdur Ext Rel Tab) 120 mg QPM PO 02/20/17 21:00 03/22/17 20:59 02/20/17 21:32 120 MG Metoprolol Succinate (Toprol Xl Tab) 50 mg QPM PO 02/20/17 21:00 03/22/17 20:59 02/20/17 21:33 50 MG Nitroglycerin (Nitrostat Tab) 0.4 mg UD PRN SL 02/20/17 19:00 03/22/17 18:59 Multivitamins/ Minerals (Multivitamin W/ Minerals Tab) 2 tab QPM PO 02/20/17 21:00 03/22/17 20:59 02/20/17 21:33 2 TAB Rosuvastatin Calcium (Crestor Tab) 5 mg QPM PO 02/20/17 21:00 03/22/17 20:59 02/20/17 21:33 5 MG Heparin Sodium (Porcine) (Heparin Sq 5000 Unit/0.5ml) 5,000 unit Q12 SQ 02/20/17 21:00 03/22/17 20:59 Future hold 02/20/17 21:36 5,000 UNIT Sodium Chloride 1,000 ml @ 80 mls/hr [id number] IV 02/20/17 19:15 02/21/17 20:14 02/21/17 05:44 80 MLS/HR Miscellaneous (Iv Fluids Completed) 1 ea PRN PRN N/A 02/20/17 19:30 02/20/18 19:29 Insulin Aspart (novoLOG ASPART) SLIDING SCALE If C... ACHS SC 02/21/17 12:00 03/23/17 11:59 02/21/17 13:11 2 UNITS Objective Vital Signs Date Time Temp Pulse Resp B/P (MAP) Pulse Ox O2 Delivery O2 Flow Rate FiO2 02/21/17 08:00 Room Air 02/21/17 07:45 97 Room Air 02/21/17 07:45 36.5 63 16 120/58 (78) 97 Room Air 66 110/60 (77) 68 110/54 (72) 02/21/17 05:35 77 135/71 (92) 65 142/71 (94) 71 153/71 (98) 02/20/17 23:25 Room Air 02/20/17 23:04 36.7 77 16 130/71 (90) 97 Room Air 02/20/17 22:46 36.8 81 18 142/71 97 Room Air 02/20/17 21:38 81 142/71 (94) 02/20/17 19:45 36.9 80 16 147/83 (104) 99 Room Air 02/20/17 19:45 Room Air 02/20/17 19:34 77 18 136/63 97 02/20/17 18:09 76 02/20/17 17:40 75 131/60 99 Room Air 86 99/59 93 97/65 02/20/17 17:34 99 Room Air 02/20/17 17:15 36.8 88 16 133/76 97 Room Air Physical Exam General Appearance: no apparent distress Eyes: normal inspection ENT: hearing grossly normal Respiratory/Chest: chest non-tender, lungs clear, normal breath sounds, no respiratory distress, no accessory muscle use Cardiovascular: regular rate, rhythm, no edema, no murmur Abdomen: normal bowel sounds, non tender, soft Neurologic/Psychiatric: 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 as tested, no motor/sensory deficits, alert, normal mood/affect, oriented x 3 Skin: normal color Laboratory Results Last 24 Hours Test 02/20/17 17:45 02/20/17 17:49 02/20/17 20:11 02/21/17 05:48 Bedside Glucose 175 mg/dl 157 mg/dl 237 mg/dl White Blood Count 5.84 K/uL Red Blood Count 4.37 M/uL Hemoglobin 13.4 g/dL Hematocrit 39.4 % Mean Corpuscular Volume 90.2 fL Mean Corpuscular Hemoglobin 30.7 pg Mean Corpuscular Hemoglobin Concent 34.0 g/dl Platelet Count 178 K/uL Mean Platelet Volume 10.4 fL Neutrophils (%) (Auto) 72.8 % Lymphocytes (%) (Auto) 17.3 % Monocytes (%) (Auto) 7.7 % Eosinophils (%) (Auto) 1.5 % Basophils (%) (Auto) 0.5 % Neutrophils # (Auto) 4.25 K/uL Lymphocytes # (Auto) 1.01 K/uL Monocytes # (Auto) 0.45 K/uL Eosinophils # (Auto) 0.09 K/uL Basophils # (Auto) 0.03 K/uL RDW Standard Deviation 41.2 fL RDW Coefficient of Variation 12.5 % Immature Granulocyte % (Auto) 0.2 % Immature Granulocyte # (Auto) 0.01 K/uL Erythrocyte Sedimentation Rate 65 mm/hr Prothrombin Time 11.0 SECONDS Prothromb Time International Ratio 1.0 Activated Partial Thromboplast Time 31.0 SECONDS Partial Thromboplastin Ratio 1.2 Sodium Level 138 mmol/L Potassium Level 3.6 mmol/L Chloride Level 104 mmol/L Carbon Dioxide Level 27 mmol/L Anion Gap 7.0 mmol/L Blood Urea Nitrogen 14 mg/dl Creatinine 0.84 mg/dl Est Creatinine Clear Calc Drug Dose 43.1 ml/min Estimated GFR () 74.0 Estimated GFR (Non- 63.8 BUN/Creatinine Ratio 16.3 Random Glucose 155 mg/dl Calcium Level 9.4 mg/dl Magnesium Level 1.9 mg/dl Total Bilirubin 0.9 mg/dl Direct Bilirubin 0.4 mg/dl Aspartate Amino Transf (AST/SGOT) 65 U/L Alanine Aminotransferase (ALT/SGPT) 95 U/L Alkaline Phosphatase 303 U/L Total Creatine Kinase 40 U/L Creatine Kinase MB 1.2 ng/ml Creatine Kinase MB Ratio 3.0 Troponin I < 0.015 ng/ml C-Reactive Protein 5.43 mg/dl Pro-B-Type Natriuretic Peptide 898 pg/ml Total Protein 7.9 gm/dl Albumin 3.1 gm/dl Thyroid Stimulating Hormone (TSH) 1.850 uIu/ml Test 02/21/17 05:55 02/21/17 08:12 02/21/17 11:43 Urine Color DK YELLOW Urine Appearance CLEAR Urine pH 5.0 Urine Specific [place] 1.023 Urine Protein NEG Urine Glucose (UA) 3+ Urine Ketones 2+ Urine Occult Blood NEG Urine Nitrite POS Urine Bilirubin NEG Urine Urobilinogen NEG Urine Leukocyte Esterase TRACE Urine WBC (Auto) 5-10 /hpf Urine RBC (Auto) 0-4 /hpf Urine Hyaline Casts (Auto) 1-5 /lpf Urine Epithelial Cells (Auto) 10-20 /lpf Urine Bacteria (Auto) 4+ Bedside Glucose 210 mg/dl 166 mg/dl Assessment and Plan This is an 86 year old female with a PMH of CAD, HTN, hx. of CVA, insulin dependent DM2, chronic diastolic CHF, hypothyroidism presented with headache and elevated ESR Possible Temporal Arteritis patient presented with L jaw and L mormon pain vascular surgery consulted - no biopsy at this time appreciate neurology input - at this point, they recommended rheumatology get involved and we will obtain that consult for now, continue prednisone 60mg - which has improved symptoms continues to have some blurry vision of L eye DM2 hold oral agents continue Lantus and sliding scale insulin may need tighter CF due to steroids CAD Stable; no chest pain Continue aspirin, Imdur, beta zaria, statin DVT ppx subq heparin FULL CODE
[2017-02-21 16:28] VITALS: BP_SYST 155; BP_SYST 157; BP_SYST 159; BP_DIAS 74; BP_DIAS 77; BP_DIAS 81; PULSE 76; TEMP 36.6; O2SAT 97
--- NOTE | 2017-02-21 17:24 | Progress Note ---
Progress Note Date of Service Feb 21, 2017. Progress Note Spoke with Dr. Calabrese of rheumatology who states that we need this biopsy of the temporal artery as soon as possible. Spoke with vascular surgery, Dr. Magallanes who agreed to perform the biopsy - though he cannot perform this until Sunday and recommended contacting general surgery Spoke with Dr. Ibarra of general surgery and he states biopsy can be performed on 02/22
--- NOTE | 2017-02-21 18:10 | Surgery Consultation ---
Consultation Date of Consultation: Feb 21, 2017. Attending Physician: Lida Paul, DO History of Present Illness More is a 86 year old female PMH of CAD, HTN, seizure disorder. Who was sent to the ED by Dr. Mendoza for possible temporal arteritis. She was seeing Dr. Mendoza for routine follow up and reported jaw pain, fatigue, decreased appetite, weight loss. ESR done as outpatient was elevated to 79 and therefore patient was sent to ED for evaluation for temporal arteritis. She also complains of left jaw pain intermittently over past 1-2 weeks which became more constant for past 3 days. She describes pain as jabbing or shooting radiation to her left taoism. She took ibuprofen at home without relief. She states she has macular degeneration but the vision in her left eye is now blurred. She reports several months of low appetite with poor PO intake and fatigue. Denies issues ambulating or falls. Denies fever, chills, URI symptoms, cough, SOB, N/V , diarrhea, dysuria. I saw pt and did history and PE, I agree with above history, I also reviewed vascular surgeon consultation, Dr. Paul who called DR. ortiz who agrees to do temporal artery biopsy but early day he can do the surgery on Sunday, Dr. Paul who asks me to do left temporal artery biopsy tomorrow, pt said last 3 days pt's left jaw and temporal area pain more worse, Past Medical/Surgical History Medical Problems: (1) Left-sided headache Status: Acute Social History Smoking Status: Never Smoker Smokeless Tobacco Use: No Alcohol Use: none Drug Use: none Marital Status: Occupation Status: retired Allergies Coded Allergies: Latex (Verified Allergy, rash/breakdown, 08/18/12) pt Niacin (Verified Allergy, rash, 08/18/12) pt Home Medications Scheduled Aspirin (Aspirin), 325 MG PO QPM Gabapentin (Neurontin), 100 MG PO HS Insulin Glargine (Lantus Solostar), 6 UNITS SC HS Isosorbide Mononitrate Ext Rel (Imdur Ext Rel), 120 MG PO QPM Metformin Hcl (Glucophage), 1,000 MG PO BIDM Metoprolol Succinate (Toprol Xl), 50 MG PO QPM Ocuvite Preservision (Ocuvite Preservision), 2 TAB PO QPM Rosuvastatin Calcium (Crestor), 5 MG PO QPM Scheduled PRN Nitroglycerin (Nitrostat), 0.4 MG SL UD PRN Current Inpatient Medications Current Inpatient Medications Medications (Trade) Dose Ordered Sig/Duncan Route Start Time Stop Time Status Last Admin Dose Admin Acetaminophen (Tylenol Tab) 650 mg Q4H PRN PO 02/20/17 18:00 03/22/17 17:59 02/20/17 20:17 650 MG Ondansetron HCl (Zofran Inj) 4 mg Q6H PRN IV 02/20/17 18:00 03/22/17 17:59 Prednisone (PredniSONE TAB) 60 mg DAILY PO 02/21/17 09:00 03/23/17 08:59 02/21/17 09:43 60 MG Glucose (Glucose 40% Gel) 15-30 GRAMS 15 GRAMS... UD PRN PO 02/20/17 18:00 03/22/17 17:59 Glucose (Glucose Chew Tab) 4-8 Tablets 4 Tabl... UD PRN PO 02/20/17 18:00 03/22/17 17:59 Dextrose (Dextrose 50% 50ML Syringe) 25-50ML OF 50% DW IV FOR... UD PRN IV 02/20/17 18:00 03/22/17 17:59 Glucagon (Glucagon Inj) 1 mg UD PRN SQ 02/20/17 18:00 03/22/17 17:59 Aspirin (Ecotrin Tab) 325 mg QPM PO 02/20/17 21:00 03/22/17 20:59 02/20/17 21:33 325 MG Gabapentin (Neurontin Cap) 100 mg HS PO 02/20/17 21:00 03/22/17 20:59 02/20/17 21:33 100 MG Insulin Glargine (Lantus Solostar Pen) 6 units HS SC 02/20/17 21:00 03/22/17 20:59 02/20/17 21:36 6 UNITS Isosorbide Mononitrate (Imdur Ext Rel Tab) 120 mg QPM PO 02/20/17 21:00 03/22/17 20:59 02/20/17 21:32 120 MG Metoprolol Succinate (Toprol Xl Tab) 50 mg QPM PO 02/20/17 21:00 03/22/17 20:59 8/1/17 21:33 50 MG Nitroglycerin (Nitrostat Tab) 0.4 mg UD PRN SL 02/20/17 19:00 03/22/17 18:59 Multivitamins/ Minerals (Multivitamin W/ Minerals Tab) 2 tab QPM PO 02/20/17 21:00 03/22/17 20:59 02/20/17 21:33 2 TAB Rosuvastatin Calcium (Crestor Tab) 5 mg QPM PO 02/20/17 21:00 03/22/17 20:59 02/20/17 21:33 5 MG Heparin Sodium (Porcine) (Heparin Sq 5000 Unit/0.5ml) 5,000 unit Q12 SQ 02/20/17 21:00 03/22/17 20:59 Future hold 02/20/17 21:36 5,000 UNIT Sodium Chloride 1,000 ml @ 80 mls/hr [id number] IV 02/20/17 19:15 02/21/17 20:14 02/21/17 17:16 80 MLS/HR Miscellaneous (Iv Fluids Completed) 1 ea PRN PRN N/A 02/20/17 19:30 02/20/18 19:29 Insulin Aspart (novoLOG ASPART) SLIDING SCALE If C... ACHS SC 02/21/17 12:00 03/23/17 11:59 02/21/17 13:11 2 UNITS Review of Systems Constitutional: No fever, No chills, No sweats, No weight loss, No weakness, No fatigue, No problem reported Eyes: No worsening of vision, No eye pain, No redness, No discharge, No diplopia, No problem reported ENT: No hearing loss, No unusual epistaxis, No nasal symptoms, No sore throat, No tinnitus, No dental problems, No trouble swallowing, No problem reported Respiratory: No cough, No sputum, No wheezing, No shortness of breath, No dyspnea on exertion, No dyspnea at rest, No hemoptysis, No problem reported Cardiovascular: No chest pain, No orthopnea, No PND, No edema, No claudication , No palpitations, No problem reported Abdomen: No pain, No nausea, No vomiting, No diarrhea, No constipation, No GI bleeding, No problem reported Neurologic: + problem reported (pt had CVA in tad past, ) Psychiatric: No depression symptoms, No anhedonism, No anxiety, No insomnia, No substance abuse, No problem reported Endocrine: No fatigue, No excessive thirst, No excessive urination, No problem reported Hematologic / Lymphatic: No abnormal bleeding/bruising, No clotting problems, No swollen lymph nodes, No night sweats, No problem reported Physical Exam Date Time Temp Pulse Resp B/P (MAP) Pulse Ox O2 Delivery O2 Flow Rate FiO2 02/21/17 16:28 36.6 76 18 155/74 (101) 97 Room Air 159/77 (104) 157/81 (106) 02/21/17 08:00 Room Air 02/21/17 07:45 97 Room Air 02/21/17 07:45 36.5 63 16 120/58 (78) 97 Room Air 66 110/60 (77) 68 110/54 (72) 02/21/17 05:35 77 135/71 (92) 65 142/71 (94) 71 153/71 (98) 02/20/17 23:25 Room Air 02/20/17 23:04 36.7 77 16 130/71 (90) 97 Room Air 02/20/17 22:46 36.8 81 18 142/71 97 Room Air 02/20/17 21:38 81 142/71 (94) 02/20/17 19:45 36.9 80 16 147/83 (104) 99 Room Air 02/20/17 19:45 Room Air 02/20/17 19:34 77 18 136/63 97 02/20/17 18:09 76 left temporal area tenderness, no redness, General Appearance: WD/WN, no apparent distress Head: normocephalic Eyes: normal inspection ENT: normal ENT inspection Neck: supple, no JVD Respiratory/Chest: chest non-tender, lungs clear, normal breath sounds Cardiovascular: regular rate, rhythm, no edema, no gallop, no JVD Abdomen/GI: normal bowel sounds, non tender, soft Extremities/Musculoskelatal: normal inspection, no calf tenderness, normal capillary refill Neurologic/Psych: no motor/sensory deficits, alert, normal mood/affect, oriented x 3 Skin: normal color, warm/dry, no rash Laboratory Results Last 24 Hours Test 02/20/17 20:11 02/21/17 05:48 02/21/17 05:55 02/21/17 08:12 Bedside Glucose 157 mg/dl 237 mg/dl 210 mg/dl Urine Color DK YELLOW Urine Appearance CLEAR Urine pH 5.0 Urine Specific Dwarf 1.023 Urine Protein NEG Urine Glucose (UA) 3+ Urine Ketones 2+ Urine Occult Blood NEG Urine Nitrite POS Urine Bilirubin NEG Urine Urobilinogen NEG Urine Leukocyte Esterase TRACE Urine WBC (Auto) 5-10 /hpf Urine RBC (Auto) 0-4 /hpf Urine Hyaline Casts (Auto) 1-5 /lpf Urine Epithelial Cells (Auto) 10-20 /lpf Urine Bacteria (Auto) 4+ Test 02/21/17 11:43 Bedside Glucose 166 mg/dl Assessment & Plan Assessment: More is a 86 year old female PMH of CAD, HTN, seizure disorder. Who was sent to the ED by Dr. Mendoza for possible temporal arteritis. She was seeing Dr. Mendoza for routine follow up and reported jaw pain, fatigue, decreased appetite, weight loss. ESR done as outpatient was elevated to 79 and therefore patient was sent to ED for evaluation for temporal arteritis. IMP: left temporal and jaw pain, possible temporal arteritis, Pt will have left temporal artery biopsy tomorrow, D/W benefits, risks and alternatives of the procedure with pt and her son, the risks- infection, bleeding, vision change, stroke, they understood, they agree with the plan, I answered all questions, npo MN,
[2017-02-21] MEDS ORDERED: INSULIN GLARGINE SOLOSTAR 100 UNITS/ML 3 ML PEN SC ONE (19:43)
[2017-02-21 20:30] VITALS: BP 166/76; PULSE 71
[2017-02-21] MEDS: CEROVITE ADV FORMULA TAB PO SCH (20:33)
[2017-02-21] MEDS: GABAPENTIN 100 MG CAP PO SCH (20:33)
[2017-02-21] MEDS: METOPROLOL SUCC 50MG EXT REL TAB PO SCH (20:33)
[2017-02-21] MEDS: ISOSORBIDE MONONITRATE 60 MG TABCR PO SCH (20:33)
[2017-02-21] MEDS: ROSUVASTATIN CALCIUM 5 MG TAB PO SCH (20:33)
[2017-02-21] MEDS: ASPIRIN 325 MG ECTAB PO SCH (20:33)
[2017-02-21] MEDS: HEPARIN SOD 5000 UNIT/0.5 ML CARP SQ SCH (20:35)
[2017-02-21] MEDS ORDERED: LORAZEPAM 0.5 MG TAB PO STA (22:16)
[2017-02-21 23:28] VITALS: BP 155/74; PULSE 66; TEMP 36.6; O2SAT 98
[2017-02-21] MEDS: ACETAMINOPHEN 325 MG TAB PO PRN (23:56)
[2017-02-22] VITALS (11 sets, daily range): BP systolic 125–177; BP diastolic 66–85; PULSE 52–79; TEMP 36.5–36.9; O2SAT 92–99; Ht 162.6 cm; Wt 60.9 kg
[2017-02-22] MEDS ORDERED: NURSING VERBAL MED ORDER ONE ×3 (01:00→17:00)
[2017-02-22] MEDS: INSULIN ASPART 100 UNITS/ML 3 ML PEN SC SCH ×4 (05:38→20:54)
[2017-02-22 07:38] LABS: HEMATOCRIT 36.3 % (37-47); MEAN CELL VOLUME 90.1 fL (80-100); MEAN CORPUSCULAR HGB CONC 33.3 g/dl (32-36); PLATELET COUNT 255 K/uL (130-400); RED BLOOD COUNT 4.03 M/uL (4.2-5.4); WHITE BLOOD COUNT 8.59 K/uL (4.8-10.8)
--- NOTE | 2017-02-22 07:41 | Rheumatology Consultation ---
Rheumatology Consultation Date of Consultation: Feb 21, 2017. Reason for Consultation: Reason for the consultation. Patient has left-sided jaw pain scalp tenderness with an elevated sedimentation rate of 65 and CRP elevation of 5.43. Rule out temp arteritis and make treatment recommendations. History of Present Illness Patient is an 86-year-old female Patient has scalp tenderness jaw claudication on the left side . She was found to have a sedimentation rate of 65 in the hospital and her CRP is elevated as well as 5.43. As part of the hospitalization she was found to have a UTI with E coli. This needs to be treated as well. But the E coli UTI is not going to give left- sided scalp tenderness jaw claudication. Patient was given prednisone 60 milligrams p.o. q.day this morning. Rheumatology was consulted went some has these constellation of symptoms it is important to get a biopsy of the temporal artery to confirm the diagnosis. As the treatment for temporal arteritis is prednisone 60 milligrams for approximately 1 year. This is significant were did morbidity for patient of this age. Therefore it is important to get tissue biopsy. Normally general surgery is consulted to get a temporal artery biopsy. The temporal artery biopsy needs to be done as soon as possible either tomorrow or the next day. The longer the patient has this dose of steroids the less likely will get a positive biopsy. So I would gives us a false negative result. The biopsy is done under local lidocaine. Past Medical/Surgical History Medical History: no pertinent history Social History Smoking Status: Never Smoker History of Alcohol Use: No Marital Status: Housing Status: lives alone Occupation Status: retired Review of Systems Constitutional: No see HPI, No fever, No chills, No sweats, No weight loss, No weakness, No fatigue, No problem reported Eyes: No see HPI, No worsening of vision, No eye pain, No redness, No discharge , No diplopia, No problem reported Respiratory: No see HPI, No cough, No sputum, No wheezing, No shortness of breath, No dyspnea on exertion, No dyspnea at rest, No hemoptysis, No problem reported Female : + dysuria Allergies Coded Allergies: Latex (Verified Allergy, rash/breakdown, 08/18/12) pt Niacin (Verified Allergy, rash, 08/18/12) pt Medications Current Inpatient Medications Medications (Trade) Dose Ordered Sig/Duncan Route Start Time Stop Time Status Last Admin Dose Admin Acetaminophen (Tylenol Tab) 650 mg Q4H PRN PO 02/20/17 18:00 03/22/17 17:59 02/20/17 20:17 650 MG Ondansetron HCl (Zofran Inj) 4 mg Q6H PRN IV 02/20/17 18:00 03/22/17 17:59 Prednisone (PredniSONE TAB) 60 mg DAILY PO 02/21/17 09:00 03/23/17 08:59 02/21/17 09:43 60 MG Glucose (Glucose 40% Gel) 15-30 GRAMS 15 GRAMS... UD PRN PO 02/20/17 18:00 03/22/17 17:59 Glucose (Glucose Chew Tab) 4-8 Tablets 4 Tabl... UD PRN PO 02/20/17 18:00 03/22/17 17:59 Dextrose (Dextrose 50% 50ML Syringe) 25-50ML OF 50% DW IV FOR... UD PRN IV 02/20/17 18:00 03/22/17 17:59 Glucagon (Glucagon Inj) 1 mg UD PRN SQ 02/20/17 18:00 03/22/17 17:59 Aspirin (Ecotrin Tab) 325 mg QPM PO 02/20/17 21:00 03/22/17 20:59 02/20/17 21:33 325 MG Gabapentin (Neurontin Cap) 100 mg HS PO 02/20/17 21:00 03/22/17 20:59 02/20/17 21:33 100 MG Insulin Glargine (Lantus Solostar Pen) 6 units HS SC 02/20/17 21:00 03/22/17 20:59 02/20/17 21:36 6 UNITS Isosorbide Mononitrate (Imdur Ext Rel Tab) 120 mg QPM PO 02/20/17 21:00 03/22/17 20:59 02/20/17 21:32 120 MG Metoprolol Succinate (Toprol Xl Tab) 50 mg QPM PO 02/20/17 21:00 03/22/17 20:59 02/20/17 21:33 50 MG Nitroglycerin (Nitrostat Tab) 0.4 mg UD PRN SL 02/20/17 19:00 03/22/17 18:59 Multivitamins/ Minerals (Multivitamin W/ Minerals Tab) 2 tab QPM PO 02/20/17 21:00 03/22/17 20:59 02/20/17 21:33 2 TAB Rosuvastatin Calcium (Crestor Tab) 5 mg QPM PO 02/20/17 21:00 03/22/17 20:59 02/20/17 21:33 5 MG Heparin Sodium (Porcine) (Heparin Sq 5000 Unit/0.5ml) 5,000 unit Q12 SQ 02/20/17 21:00 03/22/17 20:59 Future hold 02/20/17 21:36 5,000 UNIT Sodium Chloride 1,000 ml @ 80 mls/hr [id number] IV 02/20/17 19:15 02/21/17 20:14 02/21/17 05:44 80 MLS/HR Miscellaneous (Iv Fluids Completed) 1 ea PRN PRN N/A 02/20/17 19:30 02/20/18 19:29 Insulin Aspart (novoLOG ASPART) SLIDING SCALE If C... ACHS SC 02/21/17 12:00 03/23/17 11:59 02/21/17 13:11 2 UNITS Physical Exam Date Time Temp Pulse Resp B/P (MAP) Pulse Ox O2 Delivery O2 Flow Rate FiO2 02/21/17 08:00 Room Air 02/21/17 07:45 97 Room Air 02/21/17 07:45 36.5 63 16 120/58 (78) 97 Room Air 66 110/60 (77) 68 110/54 (72) 02/21/17 05:35 77 135/71 (92) 65 142/71 (94) 71 153/71 (98) 02/20/17 23:25 Room Air 02/20/17 23:04 36.7 77 16 130/71 (90) 97 Room Air 02/20/17 22:46 36.8 81 18 142/71 97 Room Air 02/20/17 21:38 81 142/71 (94) 02/20/17 19:45 36.9 80 16 147/83 (104) 99 Room Air 02/20/17 19:45 Room Air 02/20/17 19:34 77 18 136/63 97 02/20/17 18:09 76 02/20/17 17:40 75 131/60 99 Room Air 86 99/59 93 97/65 02/20/17 17:34 99 Room Air 02/20/17 17:15 36.8 88 16 133/76 97 Room Air General Appearance: + mild distress, + pertinent finding Eyes: left eye vision changes (decrease vission but not amorogus fugus), bilateral eyes PERRL, bilateral eyes EOMI ENT: normal ENT inspection Neck: supple, no adenopathy Respiratory: lungs clear, normal breath sounds Cardiovascular: regular rate, rhythm, no edema, no gallop Abdomen: soft Musculoskeletal: Joints have full range of motion without swelling tenderness and warmth except for her cervical spine where she has decrease in flexion and extension Patient has scalp tenderness over the parietal area and temporal area on the left. Neurologic/Psychiatric: no motor/sensory deficits, alert, oriented x 3 Skin: normal color Lymphatic: no adenopathy Laboratory Results Last 24 Hours Test 02/20/17 17:45 02/20/17 17:49 02/20/17 20:11 02/21/17 05:48 Bedside Glucose 175 mg/dl 157 mg/dl 237 mg/dl White Blood Count 5.84 K/uL Red Blood Count 4.37 M/uL Hemoglobin 13.4 g/dL Hematocrit 39.4 % Mean Corpuscular Volume 90.2 fL Mean Corpuscular Hemoglobin 30.7 pg Mean Corpuscular Hemoglobin Concent 34.0 g/dl Platelet Count 178 K/uL Mean Platelet Volume 10.4 fL Neutrophils (%) (Auto) 72.8 % Lymphocytes (%) (Auto) 17.3 % Monocytes (%) (Auto) 7.7 % Eosinophils (%) (Auto) 1.5 % Basophils (%) (Auto) 0.5 % Neutrophils # (Auto) 4.25 K/uL Lymphocytes # (Auto) 1.01 K/uL Monocytes # (Auto) 0.45 K/uL Eosinophils # (Auto) 0.09 K/uL Basophils # (Auto) 0.03 K/uL RDW Standard Deviation 41.2 fL RDW Coefficient of Variation 12.5 % Immature Granulocyte % (Auto) 0.2 % Immature Granulocyte # (Auto) 0.01 K/uL Erythrocyte Sedimentation Rate 65 mm/hr Prothrombin Time 11.0 SECONDS Prothromb Time International Ratio 1.0 Activated Partial Thromboplast Time 31.0 SECONDS Partial Thromboplastin Ratio 1.2 Sodium Level 138 mmol/L Potassium Level 3.6 mmol/L Chloride Level 104 mmol/L Carbon Dioxide Level 27 mmol/L Anion Gap 7.0 mmol/L Blood Urea Nitrogen 14 mg/dl Creatinine 0.84 mg/dl Est Creatinine Clear Calc Drug Dose 43.1 ml/min Estimated GFR () 74.0 Estimated GFR (Non- 63.8 BUN/Creatinine Ratio 16.3 Random Glucose 155 mg/dl Calcium Level 9.4 mg/dl Magnesium Level 1.9 mg/dl Total Bilirubin 0.9 mg/dl Direct Bilirubin 0.4 mg/dl Aspartate Amino Transf (AST/SGOT) 65 U/L Alanine Aminotransferase (ALT/SGPT) 95 U/L Alkaline Phosphatase 303 U/L Total Creatine Kinase 40 U/L Creatine Kinase MB 1.2 ng/ml Creatine Kinase MB Ratio 3.0 Troponin I < 0.015 ng/ml C-Reactive Protein 5.43 mg/dl Pro-B-Type Natriuretic Peptide 898 pg/ml Total Protein 7.9 gm/dl Albumin 3.1 gm/dl Thyroid Stimulating Hormone (TSH) 1.850 uIu/ml Test 02/21/17 05:55 02/21/17 08:12 02/21/17 11:43 Urine Color DK YELLOW Urine Appearance CLEAR Urine pH 5.0 Urine Specific Elwin 1.023 Urine Protein NEG Urine Glucose (UA) 3+ Urine Ketones 2+ Urine Occult Blood NEG Urine Nitrite POS Urine Bilirubin NEG Urine Urobilinogen NEG Urine Leukocyte Esterase TRACE Urine WBC (Auto) 5-10 /hpf Urine RBC (Auto) 0-4 /hpf Urine Hyaline Casts (Auto) 1-5 /lpf Urine Epithelial Cells (Auto) 10-20 /lpf Urine Bacteria (Auto) 4+ Bedside Glucose 210 mg/dl 166 mg/dl Assessment & Plan Assessment & Plan: Patient is an 86-year-old female with an elevated sedimentation rate and scalp tenderness and temporal artery tenderness. Temporal arteritis With this clinical picture temporal arteritis is the most likely diagnosis. We need tissue biopsy as soon as possible. She received the prednisone 60 milligrams p.o. q.day today. If we get the biopsy tomorrow that would increase the likelihood of a positive result. The longer the patient is on the prednisone prior to the biopsy less likely are to get a positive result. I recommended temporal artery biopsy tomorrow if possible by general surgery. Discuss these recommendations with hospitalist. UTI Patient is a positive urine culture this can cause an elevation in the sedimentation rate but will not cause scalp tenderness jaw claudication. Treatment as per hospitalist.
[2017-02-22 08:15] LABS: BUN/CREATININE RATIO 17.2 (10-20); CALCIUM 9.6 mg/dl (8.5-10.1); CREATININE 0.82 mg/dl (0.60-1.20); POTASSIUM 3.5 mmol/L (3.5-5.1)
[2017-02-22 08:18] LABS: ALB/GLOB RATIO 0.6 (0.9-2)
[2017-02-22] MEDS ORDERED: CIPROFLOXACIN CONSULT ACTIVE PRN ×2 (08:45)
--- NOTE | 2017-02-22 08:58 | Progress Note ---
Internal Med Progress Note Date of Service: Feb 22, 2017. Provider Documentation: SUBJECTIVE: left sided headache , jaw pain has improved markedly no complain of chest pain or SOB waiting for temporal artery biopsy today OBJECTIVE: Vital Signs-as noted below Exam: General-elderly female , very pleasant , no sign of distress Eyes-sclera non icteric HEENT : MILD TENDERNESS ON LEFT TEMPORAL AREA , Neck-no JVD Lungs-CTA , no rales or wheeze Heart-regular S1/S2 Abdomen-soft, non tender Extremities-+ 1-2 bilateral edema Neuro-no focal deficit , AAO x3 Lab data as noted below. ASSESSMENT & PLAN: This is an 86 year old female with a PMH of CAD, HTN, hx. of CVA, insulin dependent DM2, chronic diastolic CHF, hypothyroidism presented with headache and elevated ESR Possible Temporal Arteritis patient presented with L jaw and L church pain appreciate input form General surgery scheduled fo Temporal artery biopsy at 1 pm today Rheumatology following , started on Pr ednisone 60mg -daily -will be kept on hold prior to biopsy today can be resumed afterwards pt mentions of some improvement of her prior symptoms-Jaw pain , left temporal pain improvement after initiation of steroid still has generalized weakness and fatigue PT/OT eval requested POSSIBLE UTI : can cause elevated Sed rate UA positive for leukocyte esterase , nitrite pt mentions of increased frequency , dark coloured urine urine culture ordered empirically started on PO Cipro , will need 5 days tx DM2 recent HB A1 C 11 ( 12/15/16 ) ordered for repeat in AM labs hold oral agents continue Lantus and sliding scale insulin may need tighter CF due to steroids Pharmacy consulted for glycemic control follows with Endocrine clinic [facility] at [facility] -needs continued follow up and adjustment fo meds( if confirmed temporal arteritis ) if pt needs to be on chronic Prednisone CAD Cardiac cath : 100 % occlusion of RCA , medical management recommended Stable; no chest pain Continue aspirin, Imdur, beta zaria, statin DVT ppx subq heparin FULL CODE DISPOSITION lives at home as independent in her ADL's PT/OT eval requested may benefit with home health visiting nurse Medicine follow up with Dr Babb will need continued follow up with Rheumatology Dr Calabrese Vital Signs: Date Time Temp Pulse Resp B/P (MAP) Pulse Ox O2 Delivery O2 Flow Rate FiO2 02/22/17 07:38 36.6 57 16 125/69 (87) 97 Room Air 52 135/71 (92) 56 154/77 (102) 02/22/17 03:55 144/66 (92) 02/22/17 01:20 36.5 61 16 177/71 (106) 98 Room Air 62 163/74 (103) 67 171/85 (113) 02/22/17 00:15 Room Air 02/21/17 23:28 36.6 66 17 155/74 (101) 98 Room Air 02/21/17 20:30 71 166/76 (106) 02/21/17 16:28 36.6 76 18 155/74 (101) 97 Room Air 159/77 (104) 157/81 (106) 02/21/17 16:15 Room Air Lab Results: Results Past 24 Hours Test 02/21/17 11:43 02/21/17 18:56 02/21/17 20:29 02/22/17 05:36 Range/Units Bedside Glucose 166 329 263 151 70-90 mg/dl Test 02/22/17 07:19 Range/Units White Blood Count 8.59 4.8-10.8 K/uL Red Blood Count 4.03 4.2-5.4 M/uL Hemoglobin 12.1 12.0-16.0 g/dL Hematocrit 36.3 37-47 % Mean Corpuscular Volume 90.1 80-100 fL Mean Corpuscular Hemoglobin 30.0 25-34 pg Mean Corpuscular Hemoglobin Concent 33.3 32-36 g/dl RDW Standard Deviation 40.9 36.4-46.3 fL RDW Coefficient of Variation 12.5 11.5-14.5 % Platelet Count 255 130-400 K/uL Mean Platelet Volume 9.0 7.4-10.4 fL Sodium Level 143 136-145 mmol/L Potassium Level 3.5 3.5-5.1 mmol/L Chloride Level 110 98-107 mmol/L Carbon Dioxide Level 27 21-32 mmol/L Anion Gap 6.0 3-11 mmol/L Blood Urea Nitrogen 14 7-18 mg/dl Creatinine 0.82 0.60-1.20 mg/dl Est Creatinine Clear Calc Drug Dose 44.1 ml/min Estimated GFR () 76.2 Estimated GFR (Non- 65.7 BUN/Creatinine Ratio 17.2 10-20 Random Glucose 112 70-99 mg/dl Calcium Level 9.6 8.5-10.1 mg/dl Total Bilirubin 0.4 0.2-1 mg/dl Aspartate Amino Transf (AST/SGOT) 49 15-37 U/L Alanine Aminotransferase (ALT/SGPT) 73 12-78 U/L Alkaline Phosphatase 232 45-117 U/L Total Protein 6.9 6.4-8.2 gm/dl Albumin 2.7 3.4-5.0 gm/dl Globulin 4.2 2.5-4.0 gm/dl Albumin/Globulin Ratio 0.6 0.9-2
[2017-02-22] MEDS: HEPARIN SOD 5000 UNIT/0.5 ML CARP SQ SCH ×2 (09:00→20:58)
[2017-02-22] MEDS ORDERED: INSULIN GLARGINE SOLOSTAR 100 UNITS/ML 3 ML PEN SC SCH (09:00)
[2017-02-22] MEDS ORDERED: PHARMACY GLYCEMIC MGMT CONSULT PRN (09:07)
[2017-02-22] MEDS: CIPROFLOXACIN 250 MG TAB PO SCH ×2 (09:15→20:45)
--- NOTE | 2017-02-22 09:16 | Discharge Instructions ---
Discharge Instructions Date of Service Feb 22, 2017. Admission Reason for Admission: Temporal Arteritis Discharge Discharge Diagnosis / Problem: LEFT SIDED HEADACHE /UTI Discharge Goals Goal(s): Decrease discomfort, Improve disease control, Diagnostic testing, Therapeutic intervention Activity Recommendations Activity Limitations: resume your previous activity . Instructions / Follow-Up Instructions / Follow-Up HOSPITAL FOLLOW UP : 02/28/2017 1:00 PM Ramin Mariscal MD Internal Medicine [facility] RHEUMATOLOGY FOLLOW UP WITH DR SOFIA GARCIA ON Sunday02/26/17 @ 8: 40 AM ECHO OUT PT SCHEDULED : ON 02/27/2017 @ 2:00 PM Finance Professional [facility] Cardiac Studies [facility] Current Hospital Diet Patient's current hospital diet: AHA Diet (Heart Healthy), Diabetes Type 2 Diet Discharge Diet Recommended Diet: Diabetes Type 2 Diet Pending Studies Studies pending at discharge: yes List of pending studies: BIOPSY RESULT FOR TEMPORAL ARTERY Medical Emergencies . Who to Call and When: Medical Emergencies: If at any time you feel your situation is an emergency, please call 911 immediately. . Non-Emergent Contact Non-Emergency issues call your: Primary Care Provider . . "Provider Documentation" section prepared by Gina Díaz. . VTE Core Measure Inpt VTE Proph given/why not?: Unfractionated heparin SQ
--- NOTE | 2017-02-22 09:54 | Pharmacy Progress Note ---
Glycemic Control Intl Consult Date of Service Feb 22, 2017. Scope Glycemic Pharmacist consulted by Dr Díaz on 02/22/17 for glycemic control and to write orders per [facility] inpatient glycemic control protocol Objective Weight (Kilograms): 60.900 Accuchecks BSG (last 24hrs): Test 02/21/17 11:43 02/21/17 18:56 02/21/17 20:29 02/22/17 05:36 Bedside Glucose 166 mg/dl (70-90) 329 mg/dl (70-90) 263 mg/dl (70-90) 151 mg/dl (70-90) Test 02/22/17 07:19 Random Glucose 112 mg/dl (70-99) Laboratory Data (last 24hrs) Test 02/22/17 07:19 Anion Gap 6.0 mmol/L BUN/Creatinine Ratio 17.2 Blood Urea Nitrogen 14 mg/dl Creatinine 0.82 mg/dl Potassium Level 3.5 mmol/L Sodium Level 143 mmol/L White Blood Count 8.59 K/uL Recent Pertinent Medications Outpatient Anti-diabetic Regimen: * Lantus 6 units qHS * Metformin 1 gm BID * A1c = 11 % 12/15/16 The patient is currently receiving: * Basal insulin: Lantus 10 units every 12 hours * Correctional Insulin: Novolog Correction per scale ACHS Goal Range: Low 140 mg/dL - High 180 mg/dL Correction Factor: 25 mg/dL/unit * Prandial insulin: Per carb ratio of 1 unit per 13 grams CHO consumed * Oral Agents: None at this time Risk Factors for Insulin Resistance: * Steroids: prednisone 60 mg daily * Infection: on po Cipro * Recent Surgery: for temporal artery biopsy today * Diet: currently NPO Assessment & Plan ASSESSMENT: * 86 y/o female with uncontrolled diabetes, as evidenced by most recent A1c, admitted with temporal arteritis. * Of note, after a review of outpatient records (pt followed by [facility]), no changes were made to diabetes regimen as all BSGs were reported to be in the range of 110-180 * She is managed on a small dose of basal insulin and a single oral agent as an outpatient but was transitioned to a basal/bolus regimen as an inpatient * Her BSGs have been elevated due to a high dose of once daily prednisone, which she may need to go home on * She received 24 units of insulin yesterday with BSGs ranging from 112-329 mg/ dL in the past 24 hours * Her Lantus dose has been more than doubled from her outpatient dose, and with her fasting today being 112, I'm concerned this may be too much. It's still a little difficult to determine exact needs at this point. Will plan to continue the same dose but place hold parameters on it. * She could probably use a little more prandial insulin on the steroids so will tighten the CR * ADA & AACE recommend a goal blood sugar range 140-180 mg/dl for the majority of critically ill & non-critically ill patients. However, more stringent targets may be selected in individual cases. PLAN FOR INPATIENT GLYCEMIC CONTROL: * Continue Lantus 10 units BID - hold for BSG < 180 * Continue correction factor of 25 mg/dl/unit * TIGHTEN carb ratio to 1 unit per 10 grams CHO consumed * Continue goal range of Low 140 mg/dL - High 180 mg/dL * business controller consulted for assistance with outpatient management - per [facility] visit records, patient only tests BSGs when family present Thank you.
[2017-02-22] MEDS ORDERED: LIDOCAINE HCL 1% 20 ML VIAL ONE (12:17)
[2017-02-22] MEDS ORDERED: PROPOFOL IV EMULSION 10 MG/ML 20 ML VIAL IV ONE (12:19)
[2017-02-22] MEDS ORDERED: ONDANSETRON INJ 2 MG/ML 2 ML VIAL ONE (12:19)
[2017-02-22] MEDS ORDERED: LIDOCAINE HCL 2% 2 ML VIAL (20MG/ML) ONE (12:19)
[2017-02-22] MEDS ORDERED: FENTANYL CITRATE INJ 50 MCG/1 ML 2 ML VIAL ONE (12:19)
--- NOTE | 2017-02-22 12:26 | History & Physical Bridge Note ---
H&P Re-Evaluation Bridge Note: I have examined the patient, reviewed the History & Physical and in the interval since the performance of the History & Physical I have noted the following changes of clinical significance: No changes noted
[2017-02-22] MEDS ORDERED: CEFAZOLIN IV 2,000 MG/60 ML D5W IV ONE (12:33)
[2017-02-22] MEDS ORDERED: PROMETHAZINE HCL INJ 6.25 MG in SODIUM CHLORIDE 0.9% 50ML 50 ML IV PRN (12:45)
[2017-02-22] MEDS ORDERED: EpHEDrine SULFATE INJ 50 MG/ML AMP IV PRN (12:45)
[2017-02-22] MEDS ORDERED: ONDANSETRON INJ 2 MG/ML 2 ML VIAL IV PRN (12:45)
[2017-02-22] MEDS ORDERED: ATROPINE SULFATE 0.1 MG/ML 5ML SYR IV PRN (12:45)
[2017-02-22] MEDS ORDERED: FENTANYL CITRATE INJ 50 MCG/1 ML 2 ML VIAL IV PRN (12:45)
[2017-02-22] MEDS ORDERED: BACITRACIN OINT 15 GM TUBE ONE (13:21)
--- NOTE | 2017-02-22 13:43 | [facility] Post Operative Brief Note ---
Immediate Operative Summary Operative Date Feb 22, 2017. Pre-Operative Diagnosis temporal arteritis Post-Operative Diagnosis same Procedure(s) Performed left Temporal Artery Biopsy Surgeon Dr Lilly Ibarra [employer] Architect Surgeon(s) none Estimated Blood Loss 4ml Findings artery is thickening Fluids (cc crystalloids) 500ml Specimens A: Left temporal artery Drains none Anesthesia sedation + local Complication(s) None Disposition Recovery Room / PACU
--- NOTE | 2017-02-22 13:46 | Surgery Progress Note ---
Surgery Progress Note Date of Service Feb 22, 2017. Subjective + feeling well pt is stable, no fever, Objective Vital Signs: Date Time Temp Pulse Resp B/P (MAP) Pulse Ox O2 Delivery O2 Flow Rate FiO2 02/22/17 13:34 36.4 63 18 148/67 100 Mask 10 02/22/17 08:30 Room Air 02/22/17 07:38 36.6 57 16 125/69 (87) 97 Room Air 52 135/71 (92) 56 154/77 (102) 02/22/17 03:55 144/66 (92) 02/22/17 01:20 36.5 61 16 177/71 (106) 98 Room Air 62 163/74 (103) 67 171/85 (113) 02/22/17 00:15 Room Air 02/21/17 23:28 36.6 66 17 155/74 (101) 98 Room Air 02/21/17 20:30 71 166/76 (106) 02/21/17 16:28 36.6 76 18 155/74 (101) 97 Room Air 159/77 (104) 157/81 (106) 02/21/17 16:15 Room Air General Appearance: WD/WN, no apparent distress Head: normocephalic Neck: supple, no JVD Respiratory/Chest: chest non-tender, lungs clear Cardiovascular: regular rate, rhythm, no edema Abdomen: normal bowel sounds, non tender Extremities: normal range of motion, non-tender, normal inspection Laboratory Results: Results Past 24 Hours Test 02/21/17 18:56 02/21/17 20:29 02/22/17 05:36 02/22/17 07:19 Range/Units Bedside Glucose 329 263 151 70-90 mg/dl White Blood Count 8.59 4.8-10.8 K/uL Red Blood Count 4.03 4.2-5.4 M/uL Hemoglobin 12.1 12.0-16.0 g/dL Hematocrit 36.3 37-47 % Mean Corpuscular Volume 90.1 80-100 fL Mean Corpuscular Hemoglobin 30.0 25-34 pg Mean Corpuscular Hemoglobin Concent 33.3 32-36 g/dl RDW Standard Deviation 40.9 36.4-46.3 fL RDW Coefficient of Variation 12.5 11.5-14.5 % Platelet Count 255 130-400 K/uL Mean Platelet Volume 9.0 7.4-10.4 fL Sodium Level 143 136-145 mmol/L Potassium Level 3.5 3.5-5.1 mmol/L Chloride Level 110 98-107 mmol/L Carbon Dioxide Level 27 21-32 mmol/L Anion Gap 6.0 3-11 mmol/L Blood Urea Nitrogen 14 7-18 mg/dl Creatinine 0.82 0.60-1.20 mg/dl Est Creatinine Clear Calc Drug Dose 44.1 ml/min Estimated GFR () 76.2 Estimated GFR (Non- 65.7 BUN/Creatinine Ratio 17.2 10-20 Random Glucose 112 70-99 mg/dl Calcium Level 9.6 8.5-10.1 mg/dl Total Bilirubin 0.4 0.2-1 mg/dl Aspartate Amino Transf (AST/SGOT) 49 15-37 U/L Alanine Aminotransferase (ALT/SGPT) 73 12-78 U/L Alkaline Phosphatase 232 45-117 U/L Total Protein 6.9 6.4-8.2 gm/dl Albumin 2.7 3.4-5.0 gm/dl Globulin 4.2 2.5-4.0 gm/dl Albumin/Globulin Ratio 0.6 0.9-2 Assessment & Plan under sedation and local anesthesia, left temporal artery biopsy done, pt tolerated the procedure well, will F/U,
--- NOTE | 2017-02-22 13:51 | Anesthesiology Progress Note ---
Anesthesia Post Op Note Date & Time Feb 22, 2017 at 13:51 Vital Signs Pain Intensity: 4.0 Vital Signs Past 12 Hours Date Time Temp Pulse Resp B/P (MAP) Pulse Ox O2 Delivery O2 Flow Rate FiO2 02/22/17 13:34 36.4 63 18 148/67 100 Mask 10 02/22/17 08:30 Room Air 02/22/17 07:38 36.6 57 16 125/69 (87) 97 Room Air 52 135/71 (92) 56 154/77 (102) 02/22/17 03:55 144/66 (92) Notes Mental Status: alert / awake / arousable, participated in evaluation Pt Amnestic to Procedure: Yes Nausea / Vomiting: adequately controlled Pain: adequately controlled Airway Patency, RR, SpO2: stable & adequate BP & HR: stable & adequate Hydration State: stable & adequate Anesthetic Complications: no major complications apparent
--- NOTE | 2017-02-22 14:07 | OPERATIVE REPORT ---
DATE OF OPERATION: 02/22/2017 PREOPERATIVE DIAGNOSIS: Left temporal arteritis. POSTOPERATIVE DIAGNOSIS: Same. PROCEDURE: Left temporal artery biopsy. SURGEON: Dr. Lilly Ibarra. ANESTHESIA: Conscious sedation plus local. ESTIMATED BLOOD LOSS: About 3 mL. FINDINGS: Artery thickening. COMPLICATIONS: None. INDICATIONS FOR THE PROCEDURE: This is an 86-year-old female who presented significant left side jaw pain and also the patient had a high ESR and the patient history for left temporal artery biopsy to rule out temporal arteritis. I did talk to the patient about the benefit and risk, alternate procedure. I indicated the risks may include but not limited such as bleeding, infection, lesion change, stroke. Patient understands. She signed informed consent and I answered all questions. DETAILS OF PROCEDURE: We brought the patient to the OR, put the patient in the supine position. The patient received SCD on bilateral legs to prevent DVT. Also, the patient received 2 grams Ancef IV for prophylactic antibiotic. The patient received conscious sedation by the anesthesiology. The patient's left side temporal area was prepped and draped in routine sterile fashion. After a timeout, I used the Doppler to locate the left temporal artery then I injection 1% lidocaine around the incision. Then I made about 1.5 cm incision on the left temporal area and dissection the temporal artery. We found the patient had arterial thickening and once we mobilized the temporal artery we ligated 2 sides artery and removed about 1 cm piece temporal artery, rechecked no active bleeding. I used 4-0 Vicryl to close the subcutaneous layer, continuous running 4-0 Vicryl to close skin by continuous running, put the dressing on. The patient tolerated the procedure well. All instruments, needle, sponge count correct x2 at the end of the case. The specimen sent to pathology. The patient transferred to recovery room in stable condition. I attest to the content of the Intraoperative Record and any orders documented therein. Any exceptions are noted below. MASSIMO
--- NOTE | 2017-02-22 16:26 | Rheumatology Progress Note ---
Subjective Date of Service Feb 22, 2017. Subjective Pain: Left-sided headache over the temporal area Review of Systems Constitutional: No see HPI, No fever, No chills, No sweats, No weight loss, No weakness, No fatigue, No problem reported Eyes: No see HPI, No worsening of vision, No eye pain, No redness, No discharge , No diplopia, No problem reported Respiratory: No see HPI, No cough, No sputum, No wheezing, No shortness of breath, No dyspnea on exertion, No dyspnea at rest, No hemoptysis, No problem reported Cardiac: No see HPI, No chest pain, No orthopnea, No PND, No edema, No claudication, No palpitations, No problem reported Abdomen: No see HPI, No pain, No nausea, No vomiting, No diarrhea, No constipation, No GI bleeding, No problem reported Musculoskeletal: No see HPI, No joint pain, No muscle pain, No swelling, No calf pain, No problem reported Skin: No see HPI, No rash, No itch, No new/changing skin lesions, No color change, No bleeding, No problem reported Objective Vital Signs Date Time Temp Pulse Resp B/P (MAP) Pulse Ox O2 Delivery O2 Flow Rate FiO2 02/22/17 15:30 36.5 67 18 143/67 (92) 97 Room Air 02/22/17 14:49 36.5 65 19 136/72 (93) 92 Room Air 02/22/17 14:20 Room Air 02/22/17 14:20 36.6 56 18 128/70 (89) 96 Room Air 02/22/17 14:10 126/55 02/22/17 14:07 55 16 02/22/17 14:07 57 16 94 02/22/17 14:05 36.7 58 18 121/53 96 Room Air 02/22/17 14:05 121/53 02/22/17 14:02 58 19 02/22/17 14:02 58 19 95 02/22/17 14:01 115/55 02/22/17 13:57 64 16 97 02/22/17 13:57 60 16 02/22/17 13:56 121/68 02/22/17 13:52 56 18 02/22/17 13:52 57 18 97 02/22/17 13:50 121/66 02/22/17 13:47 58 15 98 02/22/17 13:47 57 15 02/22/17 13:46 106/63 02/22/17 13:42 55 15 02/22/17 13:42 55 15 100 02/22/17 13:41 132/61 02/22/17 13:37 57 15 100 02/22/17 13:37 57 15 02/22/17 13:35 148/67 02/22/17 13:34 36.4 63 18 148/67 100 Mask 10 02/22/17 13:34 148/67 02/22/17 08:30 Room Air 02/22/17 07:38 36.6 57 16 125/69 (87) 97 Room Air 52 135/71 (92) 56 154/77 (102) 02/22/17 03:55 144/66 (92) 02/22/17 01:20 36.5 61 16 177/71 (106) 98 Room Air 62 163/74 (103) 67 171/85 (113) 02/22/17 00:15 Room Air 02/21/17 23:28 36.6 66 17 155/74 (101) 98 Room Air 02/21/17 20:30 71 166/76 (106) 02/21/17 16:28 36.6 76 18 155/74 (101) 97 Room Air 159/77 (104) 157/81 (106) Physical Exam General Appearance: WD/WN, no apparent distress Eyes: normal inspection ENT: normal ENT inspection Neck: supple Respiratory/Chest: chest non-tender, lungs clear Cardiovascular: regular rate, rhythm, no edema Abdomen: normal bowel sounds Extremities: normal range of motion, non-tender Skin: normal color Lymphatic: no adenopathy Laboratory Results Last 24 Hours Test 02/21/17 18:56 02/21/17 20:29 02/22/17 05:36 02/22/17 07:19 Bedside Glucose 329 mg/dl 263 mg/dl 151 mg/dl White Blood Count 8.59 K/uL Red Blood Count 4.03 M/uL Hemoglobin 12.1 g/dL Hematocrit 36.3 % Mean Corpuscular Volume 90.1 fL Mean Corpuscular Hemoglobin 30.0 pg Mean Corpuscular Hemoglobin Concent 33.3 g/dl RDW Standard Deviation 40.9 fL RDW Coefficient of Variation 12.5 % Platelet Count 255 K/uL Mean Platelet Volume 9.0 fL Sodium Level 143 mmol/L Potassium Level 3.5 mmol/L Chloride Level 110 mmol/L Carbon Dioxide Level 27 mmol/L Anion Gap 6.0 mmol/L Blood Urea Nitrogen 14 mg/dl Creatinine 0.82 mg/dl Est Creatinine Clear Calc Drug Dose 44.1 ml/min Estimated GFR () 76.2 Estimated GFR (Non- 65.7 BUN/Creatinine Ratio 17.2 Random Glucose 112 mg/dl Calcium Level 9.6 mg/dl Total Bilirubin 0.4 mg/dl Aspartate Amino Transf (AST/SGOT) 49 U/L Alanine Aminotransferase (ALT/SGPT) 73 U/L Alkaline Phosphatase 232 U/L Total Protein 6.9 gm/dl Albumin 2.7 gm/dl Globulin 4.2 gm/dl Albumin/Globulin Ratio 0.6 Test 02/22/17 11:50 02/22/17 13:56 Bedside Glucose 90 mg/dl 91 mg/dl Assessment and Plan Elevated sedimentation rate 1. This could be related to possible temporal arteritis. She status post biopsy today. She has received her prednisone 60 milligrams p.o. q.day today after her biopsy. And she should be on 60 milligrams p.o. q.day of prednisone every morning 2. The elevated sedimentation rate could be related to her UTI. She is currently on antibiotics for this. But this would not cause yarsanism artery tenderness which is why we need to go ahead and have the biopsy Temporal artery syndrome. She had elevated sedimentation rate of 74. She had received prednisone 60 milligrams a day before her biopsy. This is a very short period of time to make the biopsy false negative. Excellent job to get the biopsy done as quickly. She is going to need prednisone 60 milligrams p.o. Q a.m.. It is okay to discharge her after the biopsy in after she has strong enough. And I will need to see her in 1 week. My office staff it is aware that we have an opening March 02 thing in the morning. UTI She had a urine culture that was positive and she is currently on antibiotics.
--- NOTE | 2017-02-22 17:44 | Neurology Progress Notes ---
Neurology Progress Note Date of Service Feb 22, 2017. Karl Aguero is a 86 year old female PMH of CAD, HTN, seizure disorder. Who was sent to the ED by Dr. Mendoza for possible temporal arteritis. She was seeing Dr. Mendoza for routine follow up and reported jaw pain, fatigue, decreased appetite, weight loss. ESR done as outpatient was elevated to 79 and therefore patient was sent to ED for evaluation for temporal arteritis. She also complains of left jaw pain intermittently over past 1-2 weeks which became more constant for past 3 days. She describes pain as jabbing or shooting radiation to her left [employer]. She took ibuprofen at home without relief. She states she has macular degeneration but the vision in her left eye is now blurred. She reports several months of low appetite with poor PO intake and fatigue. Denies issues ambulating or falls. Denies fever, chills, URI symptoms, cough, SOB, N/V , diarrhea, dysuria. No seizures for several years. No longer on antiepileptic medication and does not follow with neurology. Today she states she is feeling better today. She had the biopsy today. Objective Date Time Temp Pulse Resp B/P (MAP) Pulse Ox O2 Delivery O2 Flow Rate FiO2 02/22/17 17:28 36.8 79 16 130/67 (88) 96 Room Air 02/22/17 16:25 36.7 69 16 128/68 (88) 99 Room Air 02/22/17 15:30 36.5 67 18 143/67 (92) 97 Room Air 02/22/17 14:49 36.5 65 19 136/72 (93) 92 Room Air 02/22/17 14:20 Room Air 02/22/17 14:20 36.6 56 18 128/70 (89) 96 Room Air 02/22/17 14:10 126/55 02/22/17 14:07 55 16 02/22/17 14:07 57 16 94 02/22/17 14:05 36.7 58 18 121/53 96 Room Air 02/22/17 14:05 121/53 02/22/17 14:02 58 19 02/22/17 14:02 58 19 95 02/22/17 14:01 115/55 02/22/17 13:57 64 16 97 02/22/17 13:57 60 16 02/22/17 13:56 121/68 8/3/17 13:52 56 18 02/22/17 13:52 57 18 97 02/22/17 13:50 121/66 02/22/17 13:47 58 15 98 02/22/17 13:47 57 15 02/22/17 13:46 106/63 02/22/17 13:42 55 15 02/22/17 13:42 55 15 100 02/22/17 13:41 132/61 02/22/17 13:37 57 15 100 02/22/17 13:37 57 15 02/22/17 13:35 148/67 02/22/17 13:34 36.4 63 18 148/67 100 Mask 10 02/22/17 13:34 148/67 02/22/17 08:30 Room Air 02/22/17 07:38 36.6 57 16 125/69 (87) 97 Room Air 52 135/71 (92) 56 154/77 (102) 02/22/17 03:55 144/66 (92) 02/22/17 01:20 36.5 61 16 177/71 (106) 98 Room Air 62 163/74 (103) 67 171/85 (113) 02/22/17 00:15 Room Air 02/21/17 23:28 36.6 66 17 155/74 (101) 98 Room Air 02/21/17 20:30 71 166/76 (106) Last 24 Hours Test 02/21/17 18:56 02/21/17 20:29 02/22/17 05:36 02/22/17 07:19 Bedside Glucose 329 mg/dl 263 mg/dl 151 mg/dl White Blood Count 8.59 K/uL Red Blood Count 4.03 M/uL Hemoglobin 12.1 g/dL Hematocrit 36.3 % Mean Corpuscular Volume 90.1 fL Mean Corpuscular Hemoglobin 30.0 pg Mean Corpuscular Hemoglobin Concent 33.3 g/dl RDW Standard Deviation 40.9 fL RDW Coefficient of Variation 12.5 % Platelet Count 255 K/uL Mean Platelet Volume 9.0 fL Sodium Level 143 mmol/L Potassium Level 3.5 mmol/L Chloride Level 110 mmol/L Carbon Dioxide Level 27 mmol/L Anion Gap 6.0 mmol/L Blood Urea Nitrogen 14 mg/dl Creatinine 0.82 mg/dl Est Creatinine Clear Calc Drug Dose 44.1 ml/min Estimated GFR () 76.2 Estimated GFR (Non- 65.7 BUN/Creatinine Ratio 17.2 Random Glucose 112 mg/dl Calcium Level 9.6 mg/dl Total Bilirubin 0.4 mg/dl Aspartate Amino Transf (AST/SGOT) 49 U/L Alanine Aminotransferase (ALT/SGPT) 73 U/L Alkaline Phosphatase 232 U/L Total Protein 6.9 gm/dl Albumin 2.7 gm/dl Globulin 4.2 gm/dl Albumin/Globulin Ratio 0.6 Test 02/22/17 11:50 02/22/17 13:56 Bedside Glucose 90 mg/dl 91 mg/dl Imaging: no new imaging Exam: no exam during this encounter Current Inpatient Medications Medications (Trade) Dose Ordered Sig/Duncan Route Start Time Stop Time Status Last Admin Dose Admin Acetaminophen (Tylenol Tab) 650 mg Q4H PRN PO 02/20/17 18:00 03/22/17 17:59 02/21/17 23:56 650 MG Ondansetron HCl (Zofran Inj) 4 mg Q6H PRN IV 02/20/17 18:00 03/22/17 17:59 Prednisone (PredniSONE TAB) 60 mg DAILY PO 02/21/17 09:00 03/23/17 08:59 02/22/17 14:41 60 MG Glucose (Glucose 40% Gel) 15-30 GRAMS 15 GRAMS... UD PRN PO 02/20/17 18:00 03/22/17 17:59 Glucose (Glucose Chew Tab) 4-8 Tablets 4 Tabl... UD PRN PO 02/20/17 18:00 03/22/17 17:59 Dextrose (Dextrose 50% 50ML Syringe) 25-50ML OF 50% DW IV FOR... UD PRN IV 02/20/17 18:00 03/22/17 17:59 Glucagon (Glucagon Inj) 1 mg UD PRN SQ 02/20/17 18:00 03/22/17 17:59 Aspirin (Ecotrin Tab) 325 mg QPM PO 02/20/17 21:00 03/22/17 20:59 02/21/17 20:33 325 MG Gabapentin (Neurontin Cap) 100 mg HS PO 02/20/17 21:00 03/22/17 20:59 02/21/17 20:33 100 MG Isosorbide Mononitrate (Imdur Ext Rel Tab) 120 mg QPM PO 02/20/17 21:00 03/22/17 20:59 02/21/17 20:33 120 MG Metoprolol Succinate (Toprol Xl Tab) 50 mg QPM PO 02/20/17 21:00 03/22/17 20:59 02/21/17 20:33 50 MG Nitroglycerin (Nitrostat Tab) 0.4 mg UD PRN SL 02/20/17 19:00 03/22/17 18:59 Multivitamins/ Minerals (Multivitamin W/ Minerals Tab) 2 tab QPM PO 02/20/17 21:00 03/22/17 20:59 02/21/17 20:33 2 TAB Rosuvastatin Calcium (Crestor Tab) 5 mg QPM PO 02/20/17 21:00 03/22/17 20:59 02/21/17 20:33 5 MG Heparin Sodium (Porcine) (Heparin Sq 5000 Unit/0.5ml) 5,000 unit Q12 SQ 02/20/17 21:00 03/22/17 20:59 Future hold 02/21/17 20:35 5,000 UNIT Miscellaneous (Iv Fluids Completed) 1 ea PRN PRN N/A 02/20/17 19:30 02/20/18 19:29 Ciprofloxacin (Ciprofloxacin Tab) 250 mg Q12@0800,2000 PO 02/22/17 08:30 02/27/17 08:29 02/22/17 09:15 250 MG Ciprofloxacin (Consult) 1 UD PRN N/A 02/22/17 08:45 02/27/17 08:44 Miscellaneous Information (Consult Glycemic Management Pharmacy) 1 ea UD PRN N/A 02/22/17 09:07 03/24/17 09:06 Cefazolin Sodium (Ancef 2000mg/60 ml D5W) 2,000 mg PREOP ONCE IV 02/23/17 06:00 02/23/17 06:01 Fentanyl Citrate (Fentanyl Inj) 50 mcg Q5M PRN IV 02/22/17 12:45 02/22/17 17:45 Ondansetron HCl (Zofran Inj) 4 mg ONE PRN IV 02/22/17 12:45 02/22/17 17:45 Promethazine HCl 6.25 mg/Sodium Chloride 50.25 ml @ 202 mls/hr ONE PRN IV 02/22/17 12:45 02/22/17 17:45 Ephedrine Sulfate (EpHEDrine SULFATE INJ) 5 mg Q5M PRN IV 02/22/17 12:45 02/22/17 17:45 Atropine Sulfate (Atropine Sulfate 0.1MG/Ml Inj) 0.5 mg Q1M PRN IV 02/22/17 12:45 02/22/17 17:45 Insulin Glargine (Lantus Solostar Pen) SEE PROTOCOL TEXT BID SC 02/22/17 21:00 03/24/17 08:59 Insulin Aspart (novoLOG ASPART) SLIDING SCALE If C... ACHS SC 02/22/17 17:15 03/24/17 17:14 Impression 86 year old female with several days of left temporal pain, increased sed rate, jaw pain Plan 1. prednisone 60 mg started yesterday - some relief 2. enlight of temporal tenderness and elevated SED rate to 79 as out patient would precede with biopsy- done today 3. consult to rheumatology for management 4. if the biopsy is negative would have patient see ENT for further evaluation 5. will sign off will be available for any further questions 6. no neurology follow up is needed will see prn I have seen and discussed above patient with Dr Juanita Don, neurology Pt seen and examined, await result of TA biopsy. If neg please consult ENT for potential TMJD as potential cause of pain. WALTER Don MD
[2017-02-22] MEDS: ROSUVASTATIN CALCIUM 5 MG TAB PO SCH (20:45)
[2017-02-22] MEDS: ISOSORBIDE MONONITRATE 60 MG TABCR PO SCH (20:46)
[2017-02-22] MEDS: ASPIRIN 325 MG ECTAB PO SCH (20:46)
[2017-02-22] MEDS: CEROVITE ADV FORMULA TAB PO SCH (20:47)
[2017-02-22] MEDS: GABAPENTIN 100 MG CAP PO SCH (20:47)
[2017-02-22] MEDS: METOPROLOL SUCC 50MG EXT REL TAB PO SCH (20:47)
[2017-02-22] MEDS: INSULIN GLARGINE SOLOSTAR 100 UNITS/ML 3 ML PEN SC SCH (20:49)
[2017-02-23 03:48] VITALS: BP 121/64; PULSE 55; TEMP 36.4; O2SAT 97
[2017-02-23] MEDS ORDERED: CEFAZOLIN IV 2,000 MG/60 ML D5W IV ONE (06:00)
[2017-02-23 07:26] VITALS: BP 124/61; PULSE 57; TEMP 36.4; O2SAT 97
[2017-02-23 07:55] LABS: HEMATOCRIT 38.3 % (37-47); MEAN CELL VOLUME 91.6 fL (80-100); MEAN CORPUSCULAR HEMOGLOBIN 31.3 pg (25-34); MEAN CORPUSCULAR HGB CONC 34.2 g/dl (32-36); MEAN PLATELET VOLUME 9.9 fL (7.4-10.4); PLATELET COUNT 183 K/uL (130-400); RED BLOOD COUNT 4.18 M/uL (4.2-5.4); WHITE BLOOD COUNT 9.25 K/uL (4.8-10.8)
[2017-02-23] MEDS: CIPROFLOXACIN 250 MG TAB PO SCH (08:47)
[2017-02-23] MEDS: INSULIN GLARGINE SOLOSTAR 100 UNITS/ML 3 ML PEN SC SCH (08:48)
[2017-02-23] MEDS: HEPARIN SOD 5000 UNIT/0.5 ML CARP SQ SCH (08:59)
[2017-02-23] MEDS: INSULIN ASPART 100 UNITS/ML 3 ML PEN SC SCH ×2 (08:59→14:09)
--- NOTE | 2017-02-23 09:48 | Surgery Progress Note ---
Surgery Progress Note Date of Service Feb 23, 2017. Subjective Post OP Day: 1 (s/p left temporal artery biopsy) +fatigued, has been that way for some time now Tolerating regular diet, no nausea or vomiting minimal pain at biopsy site Objective Vital Signs: Date Time Temp Pulse Resp B/P (MAP) Pulse Ox O2 Delivery O2 Flow Rate FiO2 02/23/17 07:26 36.4 57 17 124/61 (82) 97 Room Air 02/23/17 03:48 36.4 55 16 121/64 (83) 97 Room Air 02/23/17 00:30 Room Air 02/22/17 23:58 36.5 58 16 145/75 (98) 98 Room Air 02/22/17 20:40 73 147/81 (103) 02/22/17 19:23 36.9 76 18 153/76 (101) 97 Room Air 02/22/17 17:28 36.8 79 16 130/67 (88) 96 Room Air 02/22/17 16:25 Room Air 02/22/17 16:25 36.7 69 16 128/68 (88) 99 Room Air 02/22/17 15:30 36.5 67 18 143/67 (92) 97 Room Air 02/22/17 14:49 36.5 65 19 136/72 (93) 92 Room Air 02/22/17 14:20 Room Air 02/22/17 14:20 36.6 56 18 128/70 (89) 96 Room Air 02/22/17 14:10 126/55 02/22/17 14:07 55 16 02/22/17 14:07 57 16 94 02/22/17 14:05 36.7 58 18 121/53 96 Room Air 02/22/17 14:05 121/53 02/22/17 14:02 58 19 02/22/17 14:02 58 19 95 02/22/17 14:01 115/55 02/22/17 13:57 64 16 97 02/22/17 13:57 60 16 02/22/17 13:56 121/68 02/22/17 13:52 56 18 02/22/17 13:52 57 18 97 02/22/17 13:50 121/66 02/22/17 13:47 58 15 98 02/22/17 13:47 57 15 02/22/17 13:46 106/63 8/3/17 13:42 55 15 02/22/17 13:42 55 15 100 02/22/17 13:41 132/61 02/22/17 13:37 57 15 100 02/22/17 13:37 57 15 02/22/17 13:35 148/67 02/22/17 13:34 36.4 63 18 148/67 100 Mask 10 02/22/17 13:34 148/67 General Appearance: WD/WN, no apparent distress Head: normocephalic, atraumatic Neck: trachea midline Respiratory/Chest: no respiratory distress, no accessory muscle use Incision(s): clean, dry (dressing clean and dry) Laboratory Results: Results Past 24 Hours Test 02/22/17 11:50 02/22/17 13:56 02/22/17 17:15 02/22/17 20:35 Range/Units Bedside Glucose 90 91 139 277 70-90 mg/dl Test 02/23/17 07:34 02/23/17 08:48 Range/Units White Blood Count 9.25 4.8-10.8 K/uL Red Blood Count 4.18 4.2-5.4 M/uL Hemoglobin 13.1 12.0-16.0 g/dL Hematocrit 38.3 37-47 % Mean Corpuscular Volume 91.6 80-100 fL Mean Corpuscular Hemoglobin 31.3 25-34 pg Mean Corpuscular Hemoglobin Concent 34.2 32-36 g/dl RDW Standard Deviation 43.3 36.4-46.3 fL RDW Coefficient of Variation 12.9 11.5-14.5 % Platelet Count 183 130-400 K/uL Mean Platelet Volume 9.9 7.4-10.4 fL Bedside Glucose 94 70-90 mg/dl Microbiology Results 02/22/17 Urine Culture, Received Pending Assessment & Plan POD # 1 s/p left temporal artery biopsy -vitals stable minimal pain at incision site - pathology pending Plan: Continue current medical management Await biopsy results our services signing off at this time Dr. Tomas has seen and examined patient, agrees with above
--- NOTE | 2017-02-23 10:01 | Pharmacy Progress Note ---
Glycemic Control Progress Note Date of Service Feb 23, 2017. Scope Glycemic Pharmacist consulted for glycemic control to write orders per [facility] inpatient glycemic control protocol. Objective Accuchecks BSG (last 24hrs): Test 02/22/17 11:50 02/22/17 13:56 02/22/17 17:15 02/22/17 20:35 Bedside Glucose 90 mg/dl (70-90) 91 mg/dl (70-90) 139 mg/dl (70-90) 277 mg/dl (70-90) Test 02/23/17 08:48 Bedside Glucose 94 mg/dl (70-90) Recent Pertinent Medications Outpatient Anti-diabetic Regimen: * Lantus 6 units qHS * Metformin 1 gm BID * A1c = 11 % 12/15/16 The patient is currently receiving: * Basal insulin: Lantus 10 units every 12 hours (reduced dose dependent on BSG) * Correctional Insulin: Novolog Correction per scale ACHS Goal Range: Low 140 mg/dL - High 180 mg/dL Correction Factor: 25 mg/dL/unit * Prandial insulin: Per carb ratio of 1 unit per 10 grams CHO consumed * Oral Agents: None at this time Risk Factors for Insulin Resistance: * Steroids: prednisone 60 mg daily * Infection: on po Cipro * Recent Surgery: POD #1 s/p temporal artery biopsy * Diet: AHA/ type 2 diabetes - did not eat breakfast this AM Assessment & Plan ASSESSMENT: 02/22/17 * 86 y/o female with uncontrolled diabetes, as evidenced by most recent A1c, admitted with temporal arteritis. * Of note, after a review of outpatient records (pt followed by [facility]), no changes were made to diabetes regimen as all BSGs were reported to be in the range of 110-180 * She is managed on a small dose of basal insulin and a single oral agent as an outpatient but was transitioned to a basal/bolus regimen as an inpatient * Her BSGs have been elevated due to a high dose of once daily prednisone, which she may need to go home on * She received 24 units of insulin yesterday with BSGs ranging from 112-329 mg/ dL in the past 24 hours * Her Lantus dose has been more than doubled from her outpatient dose, and with her fasting today being 112, I'm concerned this may be too much. It's still a little difficult to determine exact needs at this point. Will plan to continue the same dose but place hold parameters on it. * She could probably use a little more prandial insulin on the steroids so will tighten the CR * ADA & AACE recommend a goal blood sugar range 140-180 mg/dl for the majority of critically ill & non-critically ill patients. However, more stringent targets may be selected in individual cases. 02/23/17 * Patient received 29 units of insulin yesterday with BSGs ranging from 90-277 in the past 24 hours * Fasting = 94 this AM * As per Lantus order, the dose was held this AM. Will wait to see what pre- lunch BSG looks like and may give a dose of Lantus then. * When NPO yesterday, BSG was starting to fall on the 10 units BID dose (> double her outpatient dose) so I was concerned that this would be too much * Post-prandial BSGs still elevated (139 -> 277 after dinner yesterday) * Will tighten CR further PLAN FOR INPATIENT GLYCEMIC CONTROL: * Updated plan in preparation for discharge: * Lantus 6 units qHS * NPH 20 units qAM starting tomorrow * D/C carb ratio starting tomorrow DISCHARGE RECOMMENDATIONS: * If patient to be discharged on prednisone 60 mg daily, unsure of exact needs but would recommend the following: * Lantus 6 units qHS + NPH 20 units qAM (with prednisone dose) - patient prefers this over 3 injections of Novolog, she will just need to learn how to use a syringe and vial vs the pen that she's used to. Dr. Díaz and RN aware of this. * Continue metformin 1 gm BID Thank you.
--- NOTE | 2017-02-23 13:47 | Anesthesiology Progress Note ---
Anesthesia Post Op Note Date & Time Feb 23, 2017 at 13:47 Vital Signs Pain Intensity: 0.0 Vital Signs Past 12 Hours Date Time Temp Pulse Resp B/P (MAP) Pulse Ox O2 Delivery O2 Flow Rate FiO2 02/23/17 08:30 Room Air 02/23/17 07:26 36.4 57 17 124/61 (82) 97 Room Air 02/23/17 03:48 36.4 55 16 121/64 (83) 97 Room Air Notes Mental Status: alert / awake / arousable, participated in evaluation Pt Amnestic to Procedure: Yes Nausea / Vomiting: adequately controlled Pain: adequately controlled Airway Patency, RR, SpO2: stable & adequate BP & HR: stable & adequate Hydration State: stable & adequate Anesthetic Complications: no major complications apparent
[2017-02-23] MEDS ORDERED: PRD20 PO (14:44)
[2017-02-23] MEDS ORDERED: CPR250 PO (14:44)
[2017-02-23] MEDS ORDERED: INSULIN SYRINGES SC (15:01)
[2017-02-23] MEDS ORDERED: NVLNI SC (15:01)
--- NOTE | 2017-02-23 15:09 | Progress Note ---
Internal Med Progress Note Date of Service: Feb 23, 2017. Provider Documentation: SUBJECTIVE: headache and blurred vision much improved no pain or discomfort at left temporal biopsy site OBJECTIVE: Vital Signs-as noted below Exam: General-elderly female , very pleasant , no sign of distress Eyes-sclera non icteric HEENT : s/p biopsy on LEFT TEMPORAL AREA , bandage intact , no pain or swelling Neck-no JVD Lungs-CTA , no rales or wheeze Heart-regular S1/S2 Abdomen-soft, non tender Extremities-+ 1-2 bilateral edema Neuro-no focal deficit , AAO x3 Lab data as noted below. ASSESSMENT & PLAN: This is an 86 year old female with a PMH of CAD, HTN, hx. of CVA, insulin dependent DM2, chronic diastolic CHF, hypothyroidism presented with headache and elevated ESR Possible Temporal Arteritis patient presented with L jaw and L anglican pain appreciate input form General surgery s/p Temporal artery biopsy Rheumatology following , pt mentions of some improvement of her prior symptoms-Jaw pain , left temporal pain; blurred vision improvement after initiation of steroid still has generalized weakness and fatigue PT/OT eval requested-appreciate input ambulated 175 ft does not want to go to rehab , refuses home health will go home to say at Son;s place for 1 week Pathology for left temporal artery biopsy: shows intimal thickening -age appropriate change no arteritis noted D/w Rheumatology -Steroid dose can be reduced to 20 mg daily schedule to see Rheumatology next Sunday02/26/17 POSSIBLE UTI : can cause elevated Sed rate UA positive for leukocyte esterase , nitrite pt mentions of increased frequency , dark coloured urine urine culture pin point growth -re incubating empirically started on PO Cipro , will need 5 days tx DM2 recent HB A1 C 11 ( 12/15/16 ) ordered for repeat in AM labs hold oral agents continue Lantus and sliding scale insulin Pharmacy consulted for glycemic control will be discharged on increase dose of Lantus 8 units further adjustment will be needed if prednisone being tapered off pt will cont to follow up with family physician for further adjustment of insulin regimen CAD Cardiac cath : 100 % occlusion of RCA , medical management recommended Stable; no chest pain Continue aspirin, Imdur, beta zaria, statin DVT ppx subq heparin FULL CODE DISPOSITION discharge home today instructions and medication adjustments discussed in detail with Pt's on Medicine follow up with Dr Babb Follow up with Rheumatology Dr Calabrese next Sunday02/26/17 Vital Signs: Date Time Temp Pulse Resp B/P (MAP) Pulse Ox O2 Delivery O2 Flow Rate FiO2 02/23/17 08:30 Room Air 02/23/17 07:26 36.4 57 17 124/61 (82) 97 Room Air 02/23/17 03:48 36.4 55 16 121/64 (83) 97 Room Air 02/23/17 00:30 Room Air 02/22/17 23:58 36.5 58 16 145/75 (98) 98 Room Air 02/22/17 20:40 73 147/81 (103) 02/22/17 19:23 36.9 76 18 153/76 (101) 97 Room Air 02/22/17 17:28 36.8 79 16 130/67 (88) 96 Room Air 02/22/17 16:25 Room Air 02/22/17 16:25 36.7 69 16 128/68 (88) 99 Room Air Lab Results: Results Past 24 Hours Test 02/22/17 17:15 02/22/17 20:35 02/23/17 07:34 02/23/17 08:48 Range/Units Bedside Glucose 139 277 94 70-90 mg/dl White Blood Count 9.25 4.8-10.8 K/uL Red Blood Count 4.18 4.2-5.4 M/uL Hemoglobin 13.1 12.0-16.0 g/dL Hematocrit 38.3 37-47 % Mean Corpuscular Volume 91.6 80-100 fL Mean Corpuscular Hemoglobin 31.3 25-34 pg Mean Corpuscular Hemoglobin Concent 34.2 32-36 g/dl RDW Standard Deviation 43.3 36.4-46.3 fL RDW Coefficient of Variation 12.9 11.5-14.5 % Platelet Count 183 130-400 K/uL Mean Platelet Volume 9.9 7.4-10.4 fL Test 02/23/17 11:44 Range/Units Bedside Glucose 122 70-90 mg/dl Microbiology Results 02/22/17 Urine Culture - Preliminary, Resulted PIN-POINT GROWTH PRESENT, REINCUBATING.
[2017-02-23 15:12] VITALS: BP 124/61; PULSE 57; TEMP 36.4; O2SAT 97
[2017-02-23] MEDS ORDERED: PRED20TA2 PO (15:15)
[2017-02-23] MEDS ORDERED: INSDGIPEN SC (15:20)
[2017-02-23 15:22] VITALS: BP 155/75; PULSE 62; TEMP 36.8; O2SAT 96
--- NOTE | 2017-02-23 16:07 | Discharge Summary ---
Discharge Summary Date of Service Feb 23, 2017. Discharge Summary Admission Date: Feb 21, 2017 at 15:26 Discharge Date: Feb 23, 2017 Discharge Disposition: Home Principal Diagnosis: LEFT SIDED HEADACHE /UTI Procedures: TEMPORAL ARTERY BIOPSY Consultations: SURGERY RHEUMATOLOGY VASCULAR SURGERY Medication Reconciliation New Medications: Prednisone (Prednisone Tab) 20 Mg Tab 20 MG PO DAILY for 30 Days, #30 TAB Ciprofloxacin (Ciprofloxacin HCl) 250 Mg Tab 250 MG PO BID for 3 Days, #6 TAB Insulin Glargine (Lantus Solostar) 100 Unit/Ml Inj 8 UNITS SC HS for 30 Days Continued Medications: Aspirin (Aspirin) 325 Mg Tab 325 MG PO QPM, TAB Gabapentin (Neurontin) 100 Mg Cap 100 MG PO HS, CAP May take additional dose in AM if tolerated without oversedation. Insulin Glargine (Lantus Solostar) 100 Unit/Ml Inj 6 UNITS SC HS, PEN Isosorbide Mononitrate Ext Rel (Imdur Ext Rel) 60 Mg Ertab 120 MG PO QPM, TAB Metformin Hcl (Glucophage) 500 Mg Tab 1000 MG PO BIDM, TAB Metoprolol Succinate (Toprol Xl) 50 Mg Tab 50 MG PO QPM for 30 Days, 3 Refills Nitroglycerin (Nitrostat) 0.4 Mg Tab 0.4 MG SL UD PRN, #60 3 Refills q5 mins X 3 for chest pain Ocuvite Preservision (Ocuvite Preservision) 1 Tab Tab 2 TAB PO QPM, TAB Rosuvastatin Calcium (Crestor) 5 Mg Tab 5 MG PO QPM Referrals At Discharge Follow up Referrals: Physician Referral - 02/28/17 with Ramin Mariscal M.D. Extrusion Former Referral - Within 1 Week with Vanesa Calabrese MD Admission Information HPI (per Admitting provider): This is an 86 y/o female with PMH of CAD, HTN, seizure disorder, and other problems listed below who was sent to the ED by Dr. Mendoza for possible temporal arteritis. Patient was seen in clinic by Dr. Mendoza for routine follow up and reported jaw pain, fatigue, decreased appetite, weight loss. ESR done as outpatient was elevated to 79 and therefore patient was sent to ED for evaluation for temporal arteritis. Pt reports left jaw pain intermittently over past 1-2 weeks which became more constant for past 3 days. She describes pain as jabbing or shooting radiation to her left taoist. She does not recall any provoking factor. Took ibuprofen at home without relief. She denies any vision change from baseline. She reports several months of low appetite with poor PO intake. Reports weight loss of 30 lb in past 2 years. Has felt fatigued for months. Denies issues ambulating. States she has not voided all day. Denies fever, chills, URI symptoms, cough, SOB, N/V, diarrhea, dysuria. No seizures for several years. No longer on antiepileptic medication. She does not follow with neurology. Physical Exam (per Admitting): General Appearance: WD/WN, no apparent distress, + pertinent finding (son at bedside) Head: normocephalic, atraumatic Eyes: normal inspection, PERRL, EOMI ENT: hearing grossly normal, pharynx normal (dry mucosa), + pertinent finding (+left temporal tenderness. left TM normal. ) Neck: supple, trachea midline Respiratory/Chest: lungs clear, normal breath sounds, no respiratory distress Cardiovascular: regular rate, rhythm, no murmur Abdomen/GI: normal bowel sounds, non tender, soft Extremities/Musculoskelatal: no calf tenderness, + pertinent finding ( chronic BLLE swelling due to venous insufficiency) Neurologic/Psych: no motor/sensory deficits, normal mood/affect, oriented x 3, + pertinent finding (no focal deficit on gross examination) Skin: normal color, warm/dry Hospital Course This is an 86 year old female with a PMH of CAD, HTN, hx. of CVA, insulin dependent DM2, chronic diastolic CHF, hypothyroidism presented with headache and elevated ESR Possible Temporal Arteritis patient presented with L jaw and L taoist pain appreciate input form General surgery s/p Temporal artery biopsy Rheumatology following , pt mentions of some improvement of her prior symptoms-Jaw pain , left temporal pain; blurred vision improvement after initiation of steroid still has generalized weakness and fatigue PT/OT eval requested-appreciate input ambulated 175 ft does not want to go to rehab , refuses home health will go home to say at Son;s place for 1 week Pathology for left temporal artery biopsy: shows intimal thickening -age appropriate change no arteritis noted D/w Rheumatology -Steroid dose can be reduced to 20 mg daily schedule to see Rheumatology next Sunday02/26/17 POSSIBLE UTI : can cause elevated Sed rate UA positive for leukocyte esterase , nitrite pt mentions of increased frequency , dark coloured urine urine culture pin point growth -re incubating empirically started on PO Cipro , will need 5 days tx DM2 recent HB A1 C 11 ( 12/15/16 ) ordered for repeat in AM labs hold oral agents continue Lantus and sliding scale insulin Pharmacy consulted for glycemic control will be discharged on increase dose of Lantus 8 units further adjustment will be needed if prednisone being tapered off pt will cont to follow up with family physician for further adjustment of insulin regimen CAD Cardiac cath : 100 % occlusion of RCA , medical management recommended Stable; no chest pain Continue aspirin, Imdur, beta zaria, statin DVT ppx subq heparin FULL CODE DISPOSITION discharge home today instructions and medication adjustments discussed in detail with Pt's on Medicine follow up with Dr Babb Follow up with Rheumatology Dr Calabrese next Sunday02/26/17 Total time spent on discharge = 40 mins This includes examination of the patient, discharge planning, medication reconciliation, and communication with other providers. Discharge Instructions DI: Medical v4 Discharge Instructions Date of Service Feb 22, 2017. Admission Reason for Admission: Temporal Arteritis Discharge Discharge Diagnosis / Problem: LEFT SIDED HEADACHE /UTI Discharge Goals Goal(s): Decrease discomfort, Improve disease control, Diagnostic testing, Therapeutic intervention Activity Recommendations Activity Limitations: resume your previous activity . Instructions / Follow-Up Instructions / Follow-Up HOSPITAL FOLLOW UP : 02/28/2017 1:00 PM Ramin Mariscal MD Internal Medicine [facility] RHEUMATOLOGY FOLLOW UP WITH DR VANESA CALABRESE ON Sunday02/26/17 @ 8: 40 AM ECHO OUT PT SCHEDULED : ON 02/27/2017 @ 2:00 PM Writer [facility] Cardiac Studies [facility] Current Hospital Diet Patient's current hospital diet: AHA Diet (Heart Healthy), Diabetes Type 2 Diet Discharge Diet Recommended Diet: Diabetes Type 2 Diet Pending Studies Studies pending at discharge: yes List of pending studies: BIOPSY RESULT FOR TEMPORAL ARTERY Medical Emergencies . Who to Call and When: Medical Emergencies: If at any time you feel your situation is an emergency, please call 911 immediately. . Non-Emergent Contact Non-Emergency issues call your: Primary Care Provider . . "Provider Documentation" section prepared by Gina Díaz. . VTE Core Measure Inpt VTE Proph given/why not?: Unfractionated heparin SQ Additional Copies To Vanesa Calabrese MD Pilgram, Philip A., M.D.
[2017-02-23] MEDS ORDERED: INSULIN GLARGINE SOLOSTAR 100 UNITS/ML 3 ML PEN SC SCH (21:00)
[2017-02-24] MEDS ORDERED: INSULIN ASPART 100 UNITS/ML 3 ML PEN SC SCH (08:00)
[2017-02-24] MEDS ORDERED: INSULIN HUMAN NPH SC SCH (08:30)
== END 2017-02-23 16:30 | disposition home or self-care (01) | DRG 516 ==
LOC: C.EDB 17:14 → C.MSN 17:51 → ENRESERV 18:26 → OBSVTOIN 02-21 15:26
PROVIDERS: ADMIT Internal Medicine; ATTEND Hospitalist
PROC: 03BT3ZX Excision of Left Temporal Artery, Percutaneous Approach, Diagnostic (ICD-10-PCS; principal; 2017-02-22 13:00)
DX: M31.6 Other giant cell arteritis (principal); I13.0 Hypertensive heart and chronic kidney disease with heart failure and stage 1 through stage 4 chronic kidney disease, or unspecified chronic kidney disease; I50.32 Chronic diastolic (congestive) heart failure; N39.0 Urinary tract infection, site not specified; N18.3 Chronic kidney disease, stage 3 (moderate); I25.10 Atherosclerotic heart disease of native coronary artery without angina pectoris; J45.909 Unspecified asthma, uncomplicated; E11.22 Type 2 diabetes mellitus with diabetic chronic kidney disease; E11.51 Type 2 diabetes mellitus with diabetic peripheral angiopathy without gangrene; M19.90 Unspecified osteoarthritis, unspecified site; G30.9 Alzheimer's disease, unspecified; F02.80 Dementia in other diseases classified elsewhere, unspecified severity, without behavioral disturbance, psychotic disturbance, mood disturbance, and anxiety; G40.909 Epilepsy, unspecified, not intractable, without status epilepticus; B96.20 Unspecified Escherichia coli [E. coli] as the cause of diseases classified elsewhere; E03.9 Hypothyroidism, unspecified; I95.1 Orthostatic hypotension; E78.00 Pure hypercholesterolemia, unspecified; F41.1 Generalized anxiety disorder; Z79.82 Long term (current) use of aspirin; Z85.3 Personal history of malignant neoplasm of breast; Z79.899 Other long term (current) drug therapy; Z79.4 Long term (current) use of insulin; Z83.3 Family history of diabetes mellitus; Z82.49 Family history of ischemic heart disease and other diseases of the circulatory system; Z98.51 Tubal ligation status; Z90.710 Acquired absence of both cervix and uterus; Z88.8 Allergy status to other drugs, medicaments and biological substances; Z91.040 Latex allergy status; Z86.73 Personal history of transient ischemic attack (TIA), and cerebral infarction without residual deficits

== ENCOUNTER → 2017-02-26 | Outpatient (CLI) | payer OTHER ==
[~2017-02-26] MED LIST changes: -CELE100C PO; -CITA10TA8 PO; -COEN75CA PO; +CPR250 PO; -CRS/10 PO; +CRS5 PO; -CYAN10004 PO; -FURO20TA PO; +GABA-112 PO; +GLC/500 PO; +INSDGIPEN SC; +ISOS60TA25 PO; -LEVO75TA36 PO; -LOSA1TAB PO; -MCLIN; -MECL25TA2 PO; +MULT-190 PO; -POTA-335 PO; +PRED20TA2 PO; -vitamin c PO
== END | disposition home or self-care (01) ==
LOC: C.LAB1850 09:16
PROVIDERS: ATTEND Internal Medicine Rheumatology
DX: N39.0 Urinary tract infection, site not specified (principal)

== ENCOUNTER → 2017-04-02 | Outpatient (CLI) | payer OTHER ==
[~2017-04-02] MED LIST changes: -PRED20TA2 PO
== END | disposition home or self-care (01) ==
LOC: C.LABPBG 13:24
PROVIDERS: ATTEND Internal Medicine Rheumatology
DX: Z51.81 Encounter for therapeutic drug level monitoring (principal); R70.0 Elevated erythrocyte sedimentation rate; Z79.52 Long term (current) use of systemic steroids

== ENCOUNTER → 2017-04-12 | Outpatient (CLI) | payer OTHER ==
--- NOTE | 2017-04-12 14:28 | DIAGNOSTIC IMAGING REPORT ---
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 FINDINGS: The bones are mildly osteopenic. No fractures or traumatic subluxations are visualized. There are degenerative changes with prominent lateral osteophytes. IMPRESSION: Mild to moderate degenerative change. No acute fractures or traumatic subluxations identified. No destructive lesions are visualized on conventional radiographic imaging. Electronically signed by: Jovon Arguelles M.D. 04/12/2017 2:26 PM Dictated Date/Time: 04/12/2017 2:25 PM
[2017-04-16 15:40] LABS: ALBUMIN 4.1 G/DL (3.8-4.8); TOTAL PROTEIN 7.3 G/DL (6.2-8.3)
== END | disposition home or self-care (01) ==
LOC: C.RAD1850 14:09
PROVIDERS: ATTEND Internal Medicine Rheumatology
DX: M54.2 Cervicalgia (principal); R70.0 Elevated erythrocyte sedimentation rate; Z79.52 Long term (current) use of systemic steroids